=== PATIENT | male | born 2005 | race Caucasian/White ===

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

== ENCOUNTER → 2024-10-28 | Outpatient (CLI) | payer BC, SELFPAY ==
--- NOTE | 2024-10-28 12:39 | RAD_ITS ---
STUDY: X-RAY - RIGHT ANKLE REASON FOR EXAM: Male, 19 years old. ANKLE PAIN TECHNIQUE: 3 view(s) of the ankle. COMPARISON: None. FINDINGS: Normal visualized distal tibia and fibula. Normal medial and lateral malleoli. Normal tibiotalar articulation and ankle mortise. Normal visualized talus and calcaneus. The visualized subtalar, talonavicular, calcaneocuboid and tarsal articulations are normal. The soft tissue structures are unremarkable. RAD/Ankle min 3 Views IMPRESSION: Normal x-ray examination of the ankle. Electronically Signed: Fly Casanova MD at 13:16 EST ,
== END | disposition home or self-care (01) ==
LOC: MTRAD 12:37
PROVIDERS: PCP Internal Medicine; Referring Provider Internal Medicine; Visit Provider Internal Medicine
DX: R10.9 Unspecified abdominal pain (principal); M25.571 Pain in right ankle and joints of right foot
CPT/HCPCS: 73610

== ENCOUNTER → 2025-01-23 | Outpatient (CLI) | payer BC, SELFPAY ==
[2025-01-23 17:48] LABS: Absolute Lymphocyte Count 1.98 X10^3/uL (0.83-4.51); Absolute Neutrophil Count 4.9 X10^3/uL (2.0-7.7); Basophil# 0.04 X10^3/uL; Basophil% 0.5 % (0-1); Eosinophil# 0.08 X10^3/uL; Hematocrit 42.6 % (40-54); Hemoglobin 14.6 g/dL (13.0-16.5); Lymphocyte # 1.98 X10^3/ul (0.83-4.51); Mean Corp Hgb Conc 34.3 g/dL (32-36); Mean Corpuscular Hgb 29.7 pg (27.0-32.0); Mean Corpuscular Volume 86.8 fL (80-94); Mean Platelet Vol. 9.7 fl (6.2-12.0); Monocyte# 0.65 X10^3/uL; Monocyte% 8.5 % (0-10); NRBC Flagged by Analyzer 0 % (0-5); Neutrophil # 4.85 X10^3/uL (2.7-7.7); Neutrophil % 63.7 % (47-70); Platelet Count 305 K/mm3 (150-450); RBC Distribution Width CV 11.4 % (11.6-14.6); RBC Distribution Width SD 36.4 fl (35.1-43.9); Red Blood Count 4.91 M/mm3 (4.6-6.2); White Blood Count 7.6 K/mm3 (4.4-11.0)
[2025-01-23 17:57] LABS: Erythrocyte Sedimentation Rate < 1 mm/hr (0-20)
[2025-01-23 18:39] LABS: ALB/GLOB Ratio 1.3 RATIO (0.9-2.4); AST(SGOT) 17 U/L (15-37); Alanine Aminotransfer ALT/SGPT 21 U/L (16-61); Albumin, Serum 4.2 g/dL (3.2-5.0); Alkaline Phosphatase 55 U/L (45-117); Anion Gap 6 (5-15); BUN 11 mg/dL (7-18); BUN/Creat Ratio 10.4 RATIO (10-20); CRP < 2.90 mg/L (0.0-3.0); Calcium,Total 9.3 mg/dL (8.5-10.1); Chloride 102 mmol/L (98-107); Creatinine, Serum 1.06 mg/dL (0.70-1.30); EST Glomerular Filtration Rate 94 mL/min (>60); Est Glom Filt Rate - Afr Amer 114 mL/min (>60); Ferritin 114 ng/mL (26-388); Globulin 3.3 g/dL (2.2-4.2); Glucose 100 mg/dL (74-106); Potassium 3.8 mmol/L (3.5-5.1); Protein, Total 7.5 g/dL (6.4-8.2); Rheumatoid Factor < 10.0 IU/mL (<15); Sodium Level 137 mmol/L (136-145)
[2025-01-23 18:51] LABS: Vitamin B12 482 pg/mL (211-911); Vitamin D,25 Hydroxy 45.5 ng/mL
[2025-01-25 20:08] LABS: Anti-Nuclear Antibody Test Negative (.)
== END | disposition home or self-care (01) ==
LOC: MTLAB 16:01
PROVIDERS: PCP Internal Medicine; Referring Provider Internal Medicine; Visit Provider Internal Medicine
DX: R53.83 Other fatigue (principal)
CPT/HCPCS: 36415; 80053; 82306; 82607; 82728; 82746; 84443; 85025; 85652; 86038; 86140; 86431

== ENCOUNTER → 2025-08-23 | Outpatient (CLI) | payer BC, SELFPAY ==
[2025-08-23 18:41] LABS: AST(SGOT) 23 U/L (<=37); Alanine Aminotransfer ALT/SGPT 19 U/L (<=46); Albumin, Serum 4.8 g/dL (3.5-5.0); Alkaline Phosphatase 52 U/L (40-129); Anion Gap 13 (5-15); BUN 16 mg/dL (4-19); BUN/Creat Ratio 16.7 RATIO (10-20); Calcium,Total 9.5 mg/dL (7.6-11.0); Carbon Dioxide 24.6 mmol/L (21.0-32.0); Chloride 100 mmol/L (98-108); Ferritin 240 ng/mL (37-417); Globulin 2.5 g/dL (2.2-4.2); Glucose 81 mg/dL (70-99); Potassium 4.2 mmol/L (3.3-5.1)
[2025-08-23 18:49] LABS: Hematocrit 40.3 % (40-54); Hemoglobin 14.3 g/dL (13.0-16.5); Immature Granulocytes Count 0.010 X10^3/uL (0.0-0.0); Mean Corp Hgb Conc 35.5 g/dL (32-36); Mean Corpuscular Volume 84.1 fL (80-94); Mean Platelet Vol. 9.9 fl (6.2-12.0); NRBC Flagged by Analyzer 0 % (0-5); Platelet Count 305 K/mm3 (150-450); RBC Distribution Width CV 11.4 % (11.6-14.6); RBC Distribution Width SD 35.0 fl (35.1-43.9); Red Blood Count 4.79 M/mm3 (4.6-6.2); White Blood Count 6.5 K/mm3 (4.4-11.0)
--- OUTSIDE RECORDS SUMMARY | 2025-08-23 18:49 | XMS RPT_ITS | CCD ---
Author Organization [facility] Care Team Providers Care Independent Sales Representative Name Role Phone Gihslaine Christy Unavailable VANNESA Hess Unavailable Unavailable Ghislaine Christy MD Unavailable [phone] Slarb MEDICAL STAFF SPECIALIST, Swapna Unavailable Unavailable Manchak ELECTRONIC SECURITY TECHNICIAN, Val Unavailable Unavailable Deshawn MEDICAL STAFF SPECIALIST, VANNESA Unavailable Unavailable Unavailable Unavailable Ghislaine Christy MD Unavailable Leonie Presley DO Unavailable [phone] Cowley ELECTRONIC SECURITY TECHNICIAN, Kayela Unavailable Unavailable Kyle MEDICAL STAFF SPECIALIST, Judi Unavailable Unavailable Sridevi GONSALES, Fly Unavailable Ghislaine Christy MD Attending Unavailable Ghislaine Christy MD Consulting Unavailable Madhu Fuentes DO Unavailable Leonie Presley DO Unavailable Ghislaine Christy MD Unavailable Leonie Presley Primary Care Unavailable Ghislaine Christy Referring Unavailable Ghislaine Christy Attending Unavailable SakinaLeonie stallworth Primary Care Unavailable SakinaLeonie Referring Unavailable SakinaLeonie stallworth Attending Unavailable Leonie Presley Primary Care Unavailable Madhu Fuentes Attending Unavailable Madhu Fuentes Attending Unavailable Leonie Presley Primary Care Unavailable Medications Completed/Discontinued Medications Medication Drug Class(es) Dates Sig (Normalized) Sig (Original) amoxicillin 875 mg / clavulanate 125 mg oral tablet (20 sources) Penicillin-class Antibacterial Start: 11-01-2021 End: 10-01-2022 take 1 tablet by mouth twice daily Amoxicillin-Pot Clavulanate 875-125 MG Oral Tablet 1 (one) Tablet bid for 0 days Quantity: 20 {Tablet} Refills: 0 Ordered: 01-Oct-2022 Abdoul Medina CMA Start : 01-Nov-2021 End : 01-Oct-2022 Inactive atomoxetine 18 mg oral capsule (20 sources) Norepinephrine Reuptake Inhibitor Start: 01-31-2022 End: 03-02-2022 take 1 capsule by mouth twice daily Strattera 18 MG Oral Capsule 1 (one) Capsule bid for 30 days Quantity: 60 {Capsule} Refills: 0 Ordered: 31-Jan-2022 Val García CMA Start : 31-Jan-2022 End : 02-Mar-2022 Inactive 12 hr buPROPion hydrochloride 150 mg extended release oral tablet (20 sources) Aminoketone Start: 02-28-2022 End: 10-01-2022 take 1 tablet by mouth every twelve hours buPROPion HCl ER (SR) 150 MG Oral Tablet Extended Release 12 Hour 1 (one) Tablet n a for 0 days Quantity: 30 {Tablet} Refills: 2 Ordered: 01-Oct-2022 Abdoul Medina CMA Start : 28-Feb-2022 End : 01-Oct-2022 Inactive cephalexin 500 mg oral capsule (1 source) Cephalosporin Antibacterial Start: 09-20-2023 take 1 capsule by mouth twice daily cephALEXin 500 mg oral capsule 1 Capsule 2 times per day for 0 days Quantity: 20 {Capsule} Refills: 0 Ordered: 20-Sep-2023 Ghislaine Christy MD Start : 20-Sep-2023 Active doxycycline hyclate 100 mg oral capsule (20 sources) Tetracycline-class Drug Start: 10-13-2022 End: 10-23-2022 take 1 capsule by mouth twice daily Doxycycline Hyclate 100 MG Oral Capsule 1 (one) Capsule two times daily for 10 days Quantity: 20 {Capsule} Refills: 0 Ordered: 13-Oct-2022 Judi Wright LPN Start : 13-Oct-2022 End : 23-Oct-2022 Inactive 24 hr guanFACINE 2 mg extended release oral tablet (20 sources) Central alpha-2 Adrenergic Agonist Start: 06-20-2023 take 1 tablet by mouth once daily, then take 2 tablets by mouth once daily guanFACINE 2 mg oral Tablet, Extended Release 24 hr 1 (one) tablet qd for 30 days Quantity: 30 {Tablet} Refills: 3 Ordered: 20-Jun-2023 Ghislaine Christy MD Start : 20-Jun-2023 Active Comments: take 1mg qd x 1 week then start on the 2mg qd after that. Do not stop abruptly Start: 02-21-2023 take 1 tablet by erika th once daily, then take 2 tablets by mouth once daily guanFACINE 2 mg oral Tablet, Extended Release 24 hr 1 (one) tablet qd for 30 days Quantity: 30 {Tablet} Refills: 3 Ordered: 21-Feb-2023 Ghislaine Christy MD, MD, Dana M Start : 21-Feb-2023 Active Comments: take 1mg qd x 1 week then start on the 2mg qd after that. Do not stop abruptly Start: 12-26-2022 take 1 tablet by erika th once daily, then take 2 tablets by mouth once daily guanFACINE 2 mg oral Tablet, Extended Release 24 hr 1 (one) tablet qd for 30 days Quantity: 30 {Tablet} Refills: 3 Ordered: 26-Dec-2022 Ghislaine Christy MD, MD, Dana M Start : 26-Dec-2022 Active Comments: take 1mg qd x 1 week then start on the 2mg qd after that. Do not stop abruptly Start: 12-25-2022 End: 01-01-2023 take 1 tablet by mouth once daily guanFACINE 1 mg oral Tablet, Extended Release 24 hr 1 Tablet 1 tab qd x 1 wk, then take the 2mg script for 7 days Quantity: 7 {Tablet} Refills: 0 Ordered: 25-Dec-2022 Leonie Presley DO, DO, Kathleen Start : 25-Dec-2022 End : 01-Jan-2023 Inactive Comments: do not abruptly stop Start: 12-25-2022 take 1 mg by mouth o nce daily, then take 1 tablet by mouth once daily guanFACINE 2 mg oral tablet 1 (one) tablet qd for 30 days Quantity: 30 {Tablet} Refills: 3 Ordered: 25-Dec-2022 Leonie Preslye DO Start : 25-Dec-2022 Active Comments: take 1mg qd x 1 week then start on the 2mg qd after that. Do not stop abruptly Start: 12-22-2022 take 1 mg by mouth o nce daily, then take 1 tablet by mouth once daily guanFACINE 2 mg oral tablet 1 (one) tablet qd for 30 days Quantity: 30 {Tablet} Refills: 3 Ordered: 22-Dec-2022 Val García CMA Start : 22-Dec-2022 Active Comments: take 1mg qd x 1 week then start on the 2mg qd after that. Do not stop abruptly Start: 12-20-2022 take 1 tablet by erika th once daily guanFACINE 1 mg oral Tablet, Extended Release 24 hr 1 Tablet daily for 1 week then increase to 2 mg a day for 0 days Quantity: 30 {Tablet} Refills: 2 Ordered: 22-Dec-2022 Leonie Presley DO Start : 22-Dec-2022 Active Comments: do not abruptly stop Start: 02-04-2022 End: 10-01-2022 take 1 tablet by mouth every twenty-four hours guanFACINE HCl ER 3 MG Oral Tablet Extended Release 24 Hour 1 (one) Tablet at night for 0 days Quantity: 30 {Tablet} Refills: 3 Ordered: 01-Oct-2022 Abdoul Medina CMA Start : 04-Feb-2022 End : 01-Oct-2022 Inactive Comment on above: do not abruptly stop take 1mg qd x 1 week then start on the 2mg qd after that. Do not stop abruptly oseltamivir 75 mg oral capsule (19 sources) Neuraminidase Inhibitor Start: 11-20-20 End: 01-21-20 take 1 capsule by mouth once daily Tamiflu 75 mg oral capsule 1 Capsule daily for 0 days Quantity: 10 {Capsule} Refills: 0 Ordered: 21-Jan-2023 Abdoul Medina CMA Start : 20-Nov-2022 End : 21-Jan-2023 Inactive Qelbree 100 mg oral Capsule, ER 24 hr (2 sources) take 1 capsule by mouth every twenty-four hours in the morning Qelbree 100 mg oral Capsule, ER 24 hr in am (100 mg) Active QUEtiapine 25 mg oral tablet (20 sources) Atypical Antipsychotic Start: 05-01-20 End: 06-21-20 23 take 1 tablet by mouth once daily QUEtiapine 25 mg oral tablet 1 (one) Tablet qd for 0 days Quantity: 30 {Tablet} Refills: 2 Ordered: 01-May-2023 Leonardo Deisi Start : 01-May-2023 End : 21-Jun-2023 Discontinued Start: 01-21-2023 take 1 tablet by erika th once daily QUEtiapine 25 mg oral tablet 1 (one) Tablet qd for 0 days Quantity: 30 {Tablet} Refills: 2 Ordered: 21-Jan-2023 Leonie Presley DO Start : 21-Jan-2023 Active Start: 01-17-2023 take 1 tablet by erika th once daily QUEtiapine 25 mg oral tablet 1 (one) Tablet qd for 0 days Quantity: 30 {Tablet} Refills: 2 Ordered: 17-Jan-2023 Mando GONSALES, Ghislaine Christy MD, Ghislaine Martinez Start : 17-Jan-2023 Active Start: 10-01-2022 take 1 tablet by erika th once daily QUEtiapine Fumarate 25 MG Oral Tablet 1 (one) Tablet qd for 0 days Quantity: 30 {Tablet} Refills: 2 Ordered: 01-Oct-2022 Leonie Presley DO Start : 01-Oct-2022 Active Problems Active Problems Problem Classification Problem Date Documented Date Episodic/Chronic Abdominal pain (1 source) Unspecified abdominal pain; Translations: [Unspecified abdominal pain] Onset: 11-28-2024 Episodic Acute bronchitis (20 sources) Acute bronchitis; Translations: [Acute bronchitis] 11-01-2021 Episodic Attention-deficit, conduct, and disruptive behavior disorders (1 source) Attention-deficit hyperactivity disorder, unspecified type; Translations: [Attention-deficit hyperactivity disorder, unspecified type] Onset: 11-02-2024 Chronic Fever of unknown origin (2 sources) Fever; Translations: [Fever] 09-20-2023 Episodic Immunizations and screening for infectious disease (20 sources) Contact with and (suspected) exposure to other viral communicable diseases; Translations: [Contact with and (suspected) exposure to other viral communicable diseases (Renamed from Contact with or suspected exposure to other viral communicable disease)] Resolved: 10-01-2022 10-09-2021 Episodic Malaise and fatigue (20 sources) Fatigue; Translations: [Fatigue] Onset: 02-02-2025 Resolved: 10-01-2022 10-22-2020 Episodic Mood disorders (20 sources) Severe recurrent major depression; Translations: [Major depressive disorder, recurrent episode, severe] 01-21-2019 Chronic Mood disorders (20 sources) Mood swings; Translations: [Mood swings] 10-01-2022 Episodic Other connective tissue disease (20 sources) Pain in hallux; Translations: [Great toe pain, right] Resolved: 10-01-2022 02-03-2022 Episodic Other lower respiratory disease (20 sources) Cough; Translations: [Cough] Resolved: 10-01-2022 01-02-2021 Episodic Other lower respiratory disease (18 sources) Dyspnea; Translations: [Shortness of breath] 01-28-2023 Episodic Other nervous system disorders (20 sources) Attention and concentration deficit; Translations: [Disturbance of attention] 01-21-2019 Chronic Other non-traumatic joint disorders (20 sources) Pain of right wrist; Translations: [Wrist pain, right] Resolved: 10-01-2022 10-22-2020 Episodic Other screening for suspected conditions (not mental disorders or infectious disease) (20 sources) Patient encounter status; Translations: [Encounter for screening for lipid disorder (Renamed from Screening for lipid disorders)] 10-22-2020 Episodic Other upper respiratory disease (11 sources) Pain in throat Episodic Other upper respiratory disease (20 sources) Lesion of nose; Translations: [Nasal lesion] 10-17-2022 Episodic Other upper respiratory infections (20 sources) Sore throat symptom; Translations: [Sore throat] 05-28-2018 Episodic Residual codes; unclassified (20 sources) Nicotine-filled electronic cigarette user; Translations: [Vapes nicotine containing substance] 10-01-2022 Episodic Residual codes; unclassified (20 sources) Body mass index 20-24 - normal; Translations: [BMI 24.0-24.9, adult] 01-21-2023 Episodic Sprains and strains (20 sources) Sprain of distal tibiofibular ligament; Translations: [High ankle sprain, initial encounter] Resolved: 10-01-2022 11-15-2019 Episodic Substance-related disorders (20 sources) Addiction; Translations: [Addiction] 02-06-2023 Chronic Past or Other Problems Problem Classification Problem Date Documented Da te Episodic/Chronic Mood disorders (6 sources) Mood disorders Other non-traumatic joint disorders (2 sources) Pain of right wrist; Translations: [Wrist pain, right] 10-22-2020 Unclassified (10 sources) High ankle sprain, initial encounter Unclassified (20 sources) Attention deficit Unclassified (12 sources) Encounter for screening for lipid disorder (Renamed from Screening for lipid disorders); Translations: [Patient encounter status] 10-22-2020 Unclassified (10 sources) Wrist pain, right Unclassified (15 sources) Encounter for screening for COVID-19 Unclassified (8 sources) Contact with and (suspected) exposure to other viral communicable diseases (Renamed from Contact with or suspected exposure to other viral communicable disease) Unclassified (8 sources) Exposure to COVID-19 virus Unclassified (11 sources) Major depressive disorder, recurrent episode, severe Unclassified (6 sources) Great toe pain, right Unclassified (7 sources) Encounter for drug screening Unclassified (20 sources) Unclassified (20 sources) Unspecified Diagnosis 10-13-2022 Results Test Name Value Interpretation Reference Range Facility Antinuclear Antibody, IFAon 01-25-2025 JULIAN, IFA Negative Normal . [facility] Comment on above: Result Comment: Nega tive <1:80 Borderline 1:80 Positive >1:80 ICAP nomenclature: AC-0 For more information about Hep-2 cell patterns use ANApatterns.org, the official website for the International Consensus on Antinuclear Antibody (JULIAN) Patterns (ICAP). Performed at: [facility] [address] [id number] Accounts Receivable Processor: Antonio Holm PhD, Phone: [phone] Performed By: #### L 500.4050, L3100.7950, L506.1000, L506.0250, L501.6710, L503.0105, L503.6550, L100.0100, L501.9520, L101.9900, L505.7010 #### [facility] [address] [place], [address] CBC W/Diff, Automatedon 01-01 Absolute Lymph 1.98 X10 3/uL Normal 0.83-4.51 [facility] Comment on above: Performed By: #### L 500.4050, L3100.7950, L506.1000, L506.0250, L501.6710, L503.0105, L503.6550, L100.0100, L501.9520, L101.9900, L505.7010 #### [facility] [address] [place], [address] Absolute Neut 4.9 X10 3/uL Normal 2.0-7.7 [facility] Comment on above: Performed By: #### L 500.4050, L3100.7950, L506.1000, L506.0250, L501.6710, L503.0105, L503.6550, L100.0100, L501.9520, L101.9900, L505.7010 #### [facility] [address] [place], [address] Basophils/100 WBC (Bld) 0.5 % Normal 0-1 [facility] Comment on above: Performed By: #### L 500.4050, L3100.7950, L506.1000, L506.0250, L501.6710, L503.0105, L503.6550, L100.0100, L501.9520, L101.9900, L505.7010 #### [facility] [address] [place], [address] Eosinophils/100 WBC (Bld) 1.0 % Normal 0-5 [facility] Comment on above: Performed By: #### L 500.4050, L3100.7950, L506.1000, L506.0250, L501.6710, L503.0105, L503.6550, L100.0100, L501.9520, L101.9900, L505.7010 #### [facility] [address] [place], [address] Erythrocyte distribution width (RBC) [Ratio] 11.4 % Low 11.6-14.6 [facility] Comment on above: Performed By: #### L 500.4050, L3100.7950, L506.1000, L506.0250, L501.6710, L503.0105, L503.6550, L100.0100, L501.9520, L101.9900, L505.7010 #### [facility] [address] [place], [place], [id number] (512) Hematocrit (Bld) [Volume fraction] 42.6 % Normal 40-54 [facility] Comment on above: Performed By: #### L 500.4050, L3100.7950, L506.1000, L506.0250, L501.6710, L503.0105, L503.6550, L100.0100, L501.9520, L101.9900, L505.7010 #### [facility] [address] [place], [place], [id number] (156) Hemoglobin (Bld) [Mass/Vol] 14.6 g/dL Normal 13.0-16.5 [facility] Comment on above: Performed By: #### L 500.4050, L3100.7950, L506.1000, L506.0250, L501.6710, L503.0105, L503.6550, L100.0100, L501.9520, L101.9900, L505.7010 #### [facility] [address] [place], [place], [id number] (647) IG% 0.300 Normal 0.0-0.9 [facility] Comment on above: Result Comment: IG% - Immature Granulocytes (promyelocytes, myelocytes and metamyelocytes) > 1% indicates that a LEFT SHIFT is Present. Performed By: #### L 500.4050, L3100.7950, L506.1000, L506.0250, L501.6710, L503.0105, L503.6550, L100.0100, L501.9520, L101.9900, L505.7010 #### [facility] [address] [place], [address] Lymphocytes/100 WBC (Bld) 26.0 % Normal 19-41 [facility] Comment on above: Performed By: #### L 500.4050, L3100.7950, L506.1000, L506.0250, L501.6710, L503.0105, L503.6550, L100.0100, L501.9520, L101.9900, L505.7010 #### [facility] [address] [place], [address] MCH (RBC) [Entitic mass] 29.7 pg Normal 27.0-32.0 [facility] Comment on above: Performed By: #### L 500.4050, L3100.7950, L506.1000, L506.0250, L501.6710, L503.0105, L503.6550, L100.0100, L501.9520, L101.9900, L505.7010 #### [facility] [address] [place], [address] MCHC (RBC) [Mass/Vol] 34.3 g/dL Normal 32-36 [facility] Comment on above: Performed By: #### L 500.4050, L3100.7950, L506.1000, L506.0250, L501.6710, L503.0105, L503.6550, L100.0100, L501.9520, L101.9900, L505.7010 #### [facility] [address] [place], [address] MCV (RBC) [Entitic vol] 86.8 fL Normal 80-94 [facility] Comment on above: Performed By: #### L 500.4050, L3100.7950, L506.1000, L506.0250, L501.6710, L503.0105, L503.6550, L100.0100, L501.9520, L101.9900, L505.7010 #### [facility] [address] [place], [address] Monocytes/100 WBC (Bld) 8.5 % Normal 0-10 [facility] Comment on above: Performed By: #### L 500.4050, L3100.7950, L506.1000, L506.0250, L501.6710, L503.0105, L503.6550, L100.0100, L501.9520, L101.9900, L505.7010 #### [facility] [address] [place], [address] Neutrophils/100 WBC (Bld) 63.7 % Normal 47-70 [facility] Comment on above: Performed By: #### L 500.4050, L3100.7950, L506.1000, L506.0250, L501.6710, L503.0105, L503.6550, L100.0100, L501.9520, L101.9900, L505.7010 #### [facility] [address] [place], [address] Nucleated RBC (Bld) [#/Vol] 0 10*3/uL Normal 0-5 [facility] Comment on above: Performed By: #### L 500.4050, L3100.7950, L506.1000, L506.0250, L501.6710, L503.0105, L503.6550, L100.0100, L501.9520, L101.9900, L505.7010 #### [facility] [address] [place], [address] Platelet mean volume (Bld) [Entitic vol] 9.7 fL Normal 6.2-12.0 [facility] Comment on above: Performed By: #### L 500.4050, L3100.7950, L506.1000, L506.0250, L501.6710, L503.0105, L503.6550, L100.0100, L501.9520, L101.9900, L505.7010 #### [facility] [address] [place], [address] Platelets (Bld) [#/Vol] 305 10*3/uL Normal 150-450 [facility] Comment on above: Performed By: #### L 500.4050, L3100.7950, L506.1000, L506.0250, L501.6710, L503.0105, L503.6550, L100.0100, L501.9520, L101.9900, L505.7010 #### [facility] [address] [place], [address] RBC (Bld) [#/Vol] 4.91 10*6/uL Normal 4.6-6.2 [facility] Comment on above: Performed By: #### L 500.4050, L3100.7950, L506.1000, L506.0250, L501.6710, L503.0105, L503.6550, L100.0100, L501.9520, L101.9900, L505.7010 #### [facility] [address] [place], [address] RDW SD 36.4 fl Normal 35.1-43.9 [facility] Comment on above: Performed By: #### L 500.4050, L3100.7950, L506.1000, L506.0250, L501.6710, L503.0105, L503.6550, L100.0100, L501.9520, L101.9900, L505.7010 #### [facility] [address] [place], [address] WBC (Bld) [#/Vol] 7.6 10*3/uL Normal 4.4-11.0 [facility] Comment on above: Performed By: #### L 500.4050, L3100.7950, L506.1000, L506.0250, L501.6710, L503.0105, L503.6550, L100.0100, L501.9520, L101.9900, L505.7010 #### [facility] [address] [place], [place], [id number] CRPon 01-23-2025 C-REACTIVE PROT < 2.90 Normal 0.0-3.0 [facility] Comment on above: Result Comment: C-Re active Protein (CRP) provides useful information for the diagnosis, therapy and monitoring of inflammatory processes and associated diseases. For the evaluation of Relative Risk for Cardiovascular Disease, a High Sensitivity CRP (HSCRP) should be ordered. Performed By: #### L 500.4050, L3100.7950, L506.1000, L506.0250, L501.6710, L503.0105, L503.6550, L100.0100, L501.9520, L101.9900, L505.7010 #### [facility] [address] [place], [place], [id number] Comprehensive Metabolic Prof ilon 01-23-2025 Albumin [Mass/Vol] 4.2 g/dL Normal 3.2-5.0 [facility] Comment on above: Performed By: #### L 500.4050, L3100.7950, L506.1000, L506.0250, L501.6710, L503.0105, L503.6550, L100.0100, L501.9520, L101.9900, L505.7010 #### [facility] [address] [place], [place], [id number] Albumin/Globulin [Mass ratio] 1.3 {ratio} Normal 0.9-2.4 [facility] Comment on above: Performed By: #### L 500.4050, L3100.7950, L506.1000, L506.0250, L501.6710, L503.0105, L503.6550, L100.0100, L501.9520, L101.9900, L505.7010 #### [facility] [address] [place], [address] ALK P 55 U/L Normal 45-117 [facility] Comment on above: Performed By: #### L 500.4050, L3100.7950, L506.1000, L506.0250, L501.6710, L503.0105, L503.6550, L100.0100, L501.9520, L101.9900, L505.7010 #### [facility] [address] [place], [address] ALT [Catalytic activity/Vol] 21 U/L Normal 16-61 [facility] Comment on above: Performed By: #### L 500.4050, L3100.7950, L506.1000, L506.0250, L501.6710, L503.0105, L503.6550, L100.0100, L501.9520, L101.9900, L505.7010 #### [facility] [address] [place], [place], [id number] AST [Catalytic activity/Vol] 17 U/L Normal 15-37 [facility] Comment on above: Performed By: #### L 500.4050, L3100.7950, L506.1000, L506.0250, L501.6710, L503.0105, L503.6550, L100.0100, L501.9520, L101.9900, L505.7010 #### [facility] [address] [place], [address] Bilirubin [Mass/Vol] 0.20 mg/dL Normal 0.20-1.00 [facility] Comment on above: Result Comment: For patients on eltrombopag therapy, use of Dimension Mineral TBIL is not recommended. Performed By: #### L 500.4050, L3100.7950, L506.1000, L506.0250, L501.6710, L503.0105, L503.6550, L100.0100, L501.9520, L101.9900, L505.7010 #### [facility] [address] [place], [address] BUN/CRE 10.4 RATIO Normal 10-20 [facility] Comment on above: Performed By: #### L 500.4050, L3100.7950, L506.1000, L506.0250, L501.6710, L503.0105, L503.6550, L100.0100, L501.9520, L101.9900, L505.7010 #### [facility] [address] [place], [place], [id number] (906) CA,Total 9.3 mg/dL Normal 8.5-10.1 [facility] Comment on above: Performed By: #### L 500.4050, L3100.7950, L506.1000, L506.0250, L501.6710, L503.0105, L503.6550, L100.0100, L501.9520, L101.9900, L505.7010 #### [facility] [address] [place], [place], [id number] (700) Chloride [Moles/Vol] 102 mmol/L Normal 98-107 [facility] Comment on above: Performed By: #### L 500.4050, L3100.7950, L506.1000, L506.0250, L501.6710, L503.0105, L503.6550, L100.0100, L501.9520, L101.9900, L505.7010 #### [facility] [address] [place], [address] CO2 [Moles/Vol] 29.0 mmol/L Normal 21.0-32.0 [facility] Comment on above: Performed By: #### L 500.4050, L3100.7950, L506.1000, L506.0250, L501.6710, L503.0105, L503.6550, L100.0100, L501.9520, L101.9900, L505.7010 #### [facility] [address] [place], [place], [id number] (648) Creatinine [Mass/Vol] 1.06 mg/dL Normal 0.70-1.30 [facility] Comment on above: Result Comment: The validity of the calculated GFR GFRAA in patients over 70 years has not been determined. Clinical correlation is essential. Performed By: #### L 500.4050, L3100.7950, L506.1000, L506.0250, L501.6710, L503.0105, L503.6550, L100.0100, L501.9520, L101.9900, L505.7010 #### [facility] [address] [place], [place], [id number] (236) EST GFR - AA 114 mL/min Normal >60 [facility] Comment on above: Result Comment: Afri can Belarusian GFR Calc Performed By: #### L 500.4050, L3100.7950, L506.1000, L506.0250, L501.6710, L503.0105, L503.6550, L100.0100, L501.9520, L101.9900, L505.7010 #### [facility] [address] [place], [place], [id number] (990) GAP 6 Normal 5-15 [facility] Comment on above: Performed By: #### L 500.4050, L3100.7950, L506.1000, L506.0250, L501.6710, L503.0105, L503.6550, L100.0100, L501.9520, L101.9900, L505.7010 #### [facility] [address] [place], [address] GFR/1.73 sq M.predicted among non-blacks MDRD (S/P/Bld) [Vol rate/Area] 94 mL/min/{1.73_m2} Normal >60 [facility] Comment on above: Result Comment: Non- GFR Calc Performed By: #### L 500.4050, L3100.7950, L506.1000, L506.0250, L501.6710, L503.0105, L503.6550, L100.0100, L501.9520, L101.9900, L505.7010 #### [facility] [address] [place], [address] Globulin (S) [Mass/Vol] 3.3 g/dL Normal 2.2-4.2 [facility] Comment on above: Performed By: #### L 500.4050, L3100.7950, L506.1000, L506.0250, L501.6710, L503.0105, L503.6550, L100.0100, L501.9520, L101.9900, L505.7010 #### [facility] [address] [place], [address] Glucose [Mass/Vol] 100 mg/dL Normal 74-106 [facility] Comment on above: Result Comment: Fast ing Glucose result from 100 to 125 mg/dL suggests IMPAIRED HOMEOSTASIS per A.D.A. criteria. Performed By: #### L 500.4050, L3100.7950, L506.1000, L506.0250, L501.6710, L503.0105, L503.6550, L100.0100, L501.9520, L101.9900, L505.7010 #### [facility] [address] [place], [address] Potassium [Moles/Vol] 3.8 mmol/L Normal 3.5-5.1 [facility] Comment on above: Performed By: #### L 500.4050, L3100.7950, L506.1000, L506.0250, L501.6710, L503.0105, L503.6550, L100.0100, L501.9520, L101.9900, L505.7010 #### [facility] [address] [place], [address] Sodium [Moles/Vol] 137 mmol/L Normal 136-145 [facility] Comment on above: Performed By: #### L 500.4050, L3100.7950, L506.1000, L506.0250, L501.6710, L503.0105, L503.6550, L100.0100, L501.9520, L101.9900, L505.7010 #### [facility] [address] [place], [address] T PROT 7.5 g/dL Normal 6.4-8.2 [facility] Comment on above: Performed By: #### L 500.4050, L3100.7950, L506.1000, L506.0250, L501.6710, L503.0105, L503.6550, L100.0100, L501.9520, L101.9900, L505.7010 #### [facility] [address] [place], [address] Urea nitrogen [Mass/Vol] 11 mg/dL Normal 7-18 [facility] Comment on above: Performed By: #### L 500.4050, L3100.7950, L506.1000, L506.0250, L501.6710, L503.0105, L503.6550, L100.0100, L501.9520, L101.9900, L505.7010 #### [facility] [address] [place], [address] Erythrocyte Sed Rateon 01-23 SED RATE < 1 Normal 0-20 [facility] Comment on above: Performed By: #### L 500.4050, L3100.7950, L506.1000, L506.0250, L501.6710, L503.0105, L503.6550, L100.0100, L501.9520, L101.9900, L505.7010 #### [facility] [address] [place], [address] Ferritinon 01-23-2025 Ferritin [Mass/Vol] 114 ng/mL Normal 26-388 [facility] Comment on above: Performed By: #### L 500.4050, L3100.7950, L506.1000, L506.0250, L501.6710, L503.0105, L503.6550, L100.0100, L501.9520, L101.9900, L505.7010 #### [facility] [address] [place], [address] Folates, (Folic Acid)on 01-01 FOLATES 18.40 ng/mL Normal 3.1-55.4 [facility] Comment on above: Order Comment: N Performed By: #### L 500.4050, L3100.7950, L506.1000, L506.0250, L501.6710, L503.0105, L503.6550, L100.0100, L501.9520, L101.9900, L505.7010 #### [facility] [address] [place], [address] Rheumatoid Factoron 01-23-20 25 RHEUMATOID FAC < 10.0 Normal <15 [facility] Comment on above: Performed By: #### L 500.4050, L3100.7950, L506.1000, L506.0250, L501.6710, L503.0105, L503.6550, L100.0100, L501.9520, L101.9900, L505.7010 #### [facility] [address] [place], [address] Thyroid Stim Hormone (TSH)on 01-23-2025 TSH 1.060 uIU/mL Normal 0.358-3.740 [facility] Comment on above: Performed By: #### L 500.4050, L3100.7950, L506.1000, L506.0250, L501.6710, L503.0105, L503.6550, L100.0100, L501.9520, L101.9900, L505.7010 #### [facility] [address] [place], [id number] Vitamin B12on 01-23-2025 Cobalamin (Vitamin B12) [Mass/Vol] 482 pg/mL Normal 211-911 [facility] Comment on above: Performed By: #### L 500.4050, L3100.7950, L506.1000, L506.0250, L501.6710, L503.0105, L503.6550, L100.0100, L501.9520, L101.9900, L505.7010 #### [facility] [address] [place], [id number] Vitamin D,25 Hydroxyon 01-23 Vitamin D 25-OH 45.5 ng/mL Normal [facility] Comment on above: Result Comment: Ania min D 25(OH) Status Range Deficiency <20 ng/mL (50nmol/L) Insufficiency 20 - 30 ng/mL (50 - 75 nmol/L) Sufficiency 30 - 100 ng/mL (75 - 250 nmol/L) Toxicity >100 ng/mL (>250 nmol/L) Performed By: #### L 500.4050, L3100.7950, L506.1000, L506.0250, L501.6710, L503.0105, L503.6550, L100.0100, L501.9520, L101.9900, L505.7010 #### [facility] [address] [place], [id number] MR/JOAN.BPon 11-02-2024 MR/BMS. [address], [address] [place], [place] [address] OFFICE VISIT Date of Service: 11/02/24 MR#: [id number] Acct: [id number] Name: ISIDORO CHRISTY Rep #: [id number] : 2005 Provider: Dr. Madhu Santacruz se, DO Age/Sex: 19/M Location[place] [facility] [place] Status: Signed Intake Vital Signs 06/29/24 15:56 11/02/24 16:01 Height 6 ft 1 in 6 ft 1 in BP 129/84 H Blood Pressure Location Rt brachial Position Sitting Respiration 16 Pulse 87 Pulse Source Monitor BP Intake Visit Reasons: 3 M FU Accompanied by: Self Is patient in pain?: No Allergies No Known Allergies Allergy (Verified 11/02/24 16:00) Medications ???Medication ???Instructions ???Recorded ???Confirmed ???Type guanfacine 2 mg tablet,extended 2 mg PO QPM #90 tabs 11/02/24 11/02/24 Rx release 24 hr viloxazine 200 mg capsule,extended 400 mg (2 x 200 mg) PO DAILY 90 11/02/24 11/02/24 Rx release 24 hr days #180 caps PFSH Medical History Polysubstance (including opioids) dependence without physiological dependence Anxiety disorder, unspecified Depression, unspecified Psychiatric hospitalisation Drug abuse Bone fracture Alcohol abuse Anxiety ADHD Family History Other Alcoholism Anxiety Depression Diabetes Hypertension Mental disorder Psychiatric care Suicide attempt Social History Smoking Status: Current every day smoker tobacco type: e-cigarettes alcohol intake: current substance use type: other details: marked as yes, does not give specific choice of drug what type of physical activity do you participate in: walking HPI History of Present Illness History provided by: patient HPI: Isidoro Christy is a 19 year old male who presents today for follow up evaluation. Patient admits to having been doing good, and had some positive changes. Was pulled over for having underage possession of marijuana, and has now been clean of all THC for 8 weeks. Has been feeling much more clear since stopping. Feels like Cleverbug is working much better. 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 Sleep has been doing largely well. Stopped following with Anat at [facility]. Patient reports that he broke up with his girlfriend in recent past. Has been trying to cut out fast food as best as he can. Denies SI/HI or AVH/ Review of Systems Constitutional Denies: fever(s), chills, change in weight or fatigue Eyes Denies: change in vision or blurry vision Ears, Nose, Mouth, Throat Denies: throat pain, neck pain or change in hearing Cardiovascular Denies: chest pain or dyspnea Respiratory Denies: dyspnea or wheezing Gastrointestinal Denies: abdominal pain, nausea, vomiting, diarrhea or constipation Genitourinary Denies: dysuria or urinary frequency Musculoskeletal Denies: neck pain Integumentary/Breast Denies: rash or new lesions Neurological Denies: headache(s), dizziness or confusion Endocrine Denies: fatigue or excessive sweating Hematologic/Lymphatic Denies: easy bruising or easy bleeding Allergic/Immunologic Denies: wheezing Exam Mental Status Exam - Psych Appearance casually dressed and no apparent distress Attitude cooperative Activity/Motor Behavior MSE activity/motor behavior finding no adventitious movements Speech regular rate, regular volume and regular prosody Mood other ("pretty good") Affect restricted Thought Process coherent and tangential Thought Content no delusions and no hallucinations Suicidal Ideation none Homicidal Ideation none Attention intact Concentration intact Sensorium/Orientation awake, alert and oriented x3 Memory/Cognition other (appropriate for stated age) Insight fair Judgement fair Assessment Plan Assessment Plan (1) ADHD: Qualifiers: Attention deficit-hyperactivity disorder type: combined inattentive-hyperactive Qualified Code(s): F90.2 - Attention-deficit hyperactivity disorder, combined type Plan: - doing much better with Qelbree since discontinuing THC products (2) Depression, unspecified: Plan: - stable (3) Anxiety disorder, unspecified: Plan: - See above (4) Polysubstance (including opioids) dependence without physiological dependence: Plan: - Complete abstinence from cannabis at this time Medications: Refilled guanfacine ER 2 mg PO QPM 90 tabs 1RF F90.9 - Attention-deficit hyperactivity disorder, unspecified type Coding Level of Care Code Off vis,est,level 4 Diagnoses Attention deficit hyperactivity disorder (ADHD), combined type F90.2 Attention deficit-hyperactivity disorder type: combined inattentive-hyperact (more content not included)... Normal [facility] Ankle min 3 Viewson 11-29-20 24 Ankle min 3 Views [facility] [address] [place], [place] [address] Ankle min 3 Views MR#: [id number] Acct: [id number] Name: ISIDORO CHRISTY Rep #: [id number] : 2005 M 19 From: Fly Schaeffer PCP: Dr. Leonie Presley DO Status: REG CLI Study: Ankle min 3 Views Date of Exam: 10/28/24 Exam# [id number] Ordering Dr: Ghislaine Christy MD :[id number] STUDY: X-RAY - RIGHT ANKLE REASON FOR EXAM: Male, 19 years old. ANKLE PAIN TECHNIQUE: 3 view(s) of the ankle. COMPARISON: None. FINDINGS: Normal visualized distal tibia and fibula. Normal medial and lateral malleoli. Normal tibiotalar articulation and ankle mortise. Normal visualized talus and calcaneus. The visualized subtalar, talonavicular, calcaneocuboid and tarsal articulations are normal. The soft tissue structures are unremarkable. RAD/Ankle min 3 Views IMPRESSION: Normal x-ray examination of the ankle. Electronically Signed: Fly Casanova MD at 13:16 EST , CC: Dr. Ghislaine Christy MD; Dr. Leonie Presley DO Telecommunications Engineer: Signed Normal [facility] MR/BMS.BPon 06-29-2024 MR/BMS.[address], [address] [place] [address] OFFICE VISIT Date of Service: 06/29/24 MR#: [id number] Acct: [id number] Name: ISIDORO CHRISTY Rep #: [id number] : 2005 Provider: Dr. Madhu Santacruz se, DO Age/Sex: 19/M Location: [facility] [place] Status: Signed Intake Vital Signs 02/04/24 16:33 06/29/24 15:56 Height 6 ft 1 in 6 ft 1 in BP Intake Visit Reasons: follow up Allergies No Known Allergies Allergy (Verified 02/04/24 16:33) PFSH Medical History ADHD Alcohol abuse Anxiety Anxiety disorder, unspecified Bone fracture Depression, unspecified Drug abuse Polysubstance (including opioids) dependence without physiological dependence Psychiatric hospitalisation Family History Other Alcoholism Anxiety Depression Diabetes Hypertension Mental disorder Psychiatric care Suicide attempt Social History Smoking Status: Current every day smoker tobacco type: e-cigarettes alcohol intake: current substance use type: other details: marked as yes, does not give specific choice of drug what type of physical activity do you participate in: walking HPI History of Present Illness History provided by: patient HPI: Isidoro Christy is a 19 year old male who presents today for follow up evaluation. Patient reports that he has been "alright." Patient reports that medication has been going "pretty good." Has been taking viloxazine as prescribed, and does feel like focus has been decent. Had accidentally took guanfacine in the morning and felt like he felt more calm in the morning. Feels like he still has some "cognitive distortions." Follows with Anat at [facility]. Denies any SI/HI or AVH. Does feel like he is less impulsive than he had been in the past. Review of Systems Constitutional Denies: fever(s), chills, change in weight or fatigue Eyes Denies: change in vision or blurry vision Ears, Nose, Mouth, Throat Denies: throat pain, neck pain or change in hearing Cardiovascular Denies: chest pain or dyspnea Respiratory Denies: dyspnea or wheezing Gastrointestinal Denies: abdominal pain, nausea, vomiting, diarrhea or constipation Genitourinary Denies: dysuria or urinary frequency Musculoskeletal Denies: neck pain Integumentary/Breast Denies: rash or new lesions Neurological Denies: headache(s), dizziness or confusion Endocrine Denies: fatigue or excessive sweating Hematologic/Lymphatic Denies: easy bruising or easy bleeding Allergic/Immunologic Denies: wheezing Exam Mental Status Exam - Psych Appearance casually dressed and no apparent distress Attitude guarded Activity/Motor Behavior MSE activity/motor behavior finding no adventitious movements Speech regular rate, regular volume and regular prosody Mood other ("All right") Affect restricted Thought Process coherent and tangential Thought Content no delusions and no hallucinations Suicidal Ideation none Homicidal Ideation none Attention intact Concentration intact Sensorium/Orientation awake, alert and oriented x3 Memory/Cognition other (appropriate for stated age) Insight fair Judgement fair Assessment Plan Assessment Plan (1) ADHD: Qualifiers: Attention deficit-hyperactivity disorder type: combined inattentive-hyperactive Qualified Code(s): F90.2 - Attention-deficit hyperactivity disorder, combined type Plan: - Tolerating Qelbree at 400 mg a day -Patient okay to move guanfacine to morning as he felt that it helped him feel more calm during the day (2) Depression, unspecified: Plan: - stable -Additional psychotherapy as below (3) Anxiety disorder, unspecified: Plan: - See above (4) Polysubstance (including opioids) dependence without physiological dependence: Plan: - Longstanding history of polysubstance abuse including opioids, stimulants, hallucinogens, alcohol, nicotine, does admit to recently smoking some marijuana Visit Details Comments: Spent 20 minutes outside of [facility] providing additional psychotherapy. Largely provided cognitive/behavioral psychotherapy. Discussed patient's recurrent sense of not being able to live up to his siblings and negative distortions. Patient describes feeling like he cannot outlive his previous decisions and has to act a certain way in front of other people so that they can think a certain thing about him. He has good insight into recognizing these distortions however does seem to have some difficulty implementing behavioral changes. 07/04/24 0626 Date Madhu Zacarias Signature: Date (more content not included)... Normal [facility] COVID 19 RAPID ([id number])Ordere d By: Ghislaine Christy on 09-20-2023 SARS-CoV-2 (COVID-19) RNA MITCH+probe Ql (Unsp spec) Negative [facility] Work Phone: Inhouse FLU A+B DIRECT AG, ( RAPID) ([id number])Ordered By: Ghislaine Christy on 09-20-2023 FLUAV+FLUBV Ag Ql (Unsp spec) Negative Normal [facility]; [facility] Work Phone: Rapid Strep Test, Office ([phone])Ordered By: Ghislaine Christy on 09-20-2023 S. pyogenes Ag EIA Ql (Throat) Positive Normal [facility]; [facility] Work Phone: Urine Drug Screen -Medicare (Office - Urine Drug Screen 9 Panel) ([id number])Ordered By: Val García on 02-11-2023 Barbiturates Ql (S/P/Bld) n Normal [facility]; [facility] Work Phone: Benzodiazepines Ql (U) n Normal [facility]; [facility] Work Phone: Benzoylecgonine Confirm Ql n Normal [facility]; [facility] Work Phone: Cannabinoids Confirm Ql (U) n Normal [facility]; [facility] Work Phone: Methadone [Mass/Vol] n Normal [facility]; [facility] Work Phone: Methamphetamine Ql n Normal [facility]; [facility] Work Phone: Opiates Ql (U) n Normal [facility] Work Phone: Ethyl Glucuronide Screen, Ur ineon 03-25-2022 Ethyl Glucuronide,Urine Negative Normal [facility] Comment on above: Result Comment: Ethy l Glucuronide has been screened by Immunoassay at a 500 ng/mL threshold. POSITIVE results are not confirmed by a more specific alternative method unless requested. If confirmation is needed, request confirmation under separate order. NOTE: These results are for medical treatment only. Analysis performed using non-forensic procedures. This test has not been cleared by the [place] Food and Drug Administration (FDA). The FDA has determined that such clearance or approval is not necessary. The performance characteristics have been determined by the clinical laboratories of [facility]. Performed By: #### E THGU #### [facility] [address] [place] [address] Acetaminophenon 03-24-2022 Acetaminophen [Mass/Vol] ug/mL Normal 10.0-30.0 [facility] Comment on above: Performed By: #### C MP3, ETOH4, ACET4, HEMDF, SAL33 #### [facility] [address] [place] [address] Comp Metabolic Panelon 03-24 ALP [Catalytic activity/Vol] 82 U/L Normal 38-126 [facility] Comment on above: Performed By: #### C MP3, ETOH4, ACET4, HEMDF, SAL33 #### [facility] [address] [place] [address] ALT [Catalytic activity/Vol] 19 U/L Normal 0-49 [facility] Comment on above: Result Comment: The ALT test is performed by an updated assay method. Please note that the reference intervals have been changed and are now sex specific. Performed By: #### C MP3, ETOH4, ACET4, HEMDF, SAL33 #### [facility] [address] [place] [address] Calcium [Mass/Vol] 9.7 mg/dL Normal 8.4-10.4 [facility] Comment on above: Performed By: #### C MP3, ETOH4, ACET4, HEMDF, SAL33 #### [facility] [address] [place] [address] Glucose [Mass/Vol] 129 mg/dL High 70-100 [facility] Comment on above: Performed By: #### C MP3, ETOH4, ACET4, HEMDF, SAL33 #### [facility] [address] [place] [address] Urea nitrogen [Mass/Vol] 18 mg/dL High 7-17 [facility] Comment on above: Performed By: #### C MP3, ETOH4, ACET4, HEMDF, SAL33 #### [facility] [address] [place] [address] Anion gap [Moles/Vol] 10 mmol/L Normal 3-13 [facility] Comment on above: Performed By: #### C MP3, ETOH4, ACET4, HEMDF, SAL33 #### [facility] [address] [place] [address] AST [Catalytic activity/Vol] 33 U/L Normal 15-46 [facility] Comment on above: Performed By: #### C MP3, ETOH4, ACET4, HEMDF, SAL33 #### [facility] [address] [place] [address] Bilirubin [Mass/Vol] 0.6 mg/dL Normal 0.2-1.3 [facility] Comment on above: Performed By: #### C MP3, ETOH4, ACET4, HEMDF, SAL33 #### [facility] [address] [place] [address] CO2 [Moles/Vol] 25 mmol/L Normal 22-30 [facility] Comment on above: Performed By: #### C MP3, ETOH4, ACET4, HEMDF, SAL33 #### [facility] [address] [place] [address] Creatinine [Mass/Vol] 1.01 mg/dL Normal 0.52-1.25 [facility] Comment on above: Performed By: #### C MP3, ETOH4, ACET4, HEMDF, SAL33 #### [facility] [address] [place] [address] eGFR OTHER > 90.0 Normal >60 [facility] Comment on above: Result Comment: KDIG O guidelines provide the following GFR categories: Stage GFR(ml/min/1.73 m2) Terms G1 >=90 Normal or high G2 60-89 Mildly decreased* G3a 45-59 Mildly to moderately decreased G3b 30-44 Moderately to severely decreased G4 15-29 Severely decreased G5 <15 Kidney failure *Relative to young adult level. In the absence of evidence of kidney damage, neither GFR category G1 nor G2 fulfill the criteria for CKD. The CKD-EPI equation is validated in individuals 18 years of age and older. Currently the best equation for estimating glomerular filtration rate (GFR) from serum creatinine in children is the Bedside Neri equation. It is less accurate in patients with extremes of muscle mass, restriction of dietary protein, ingestion of creatine, extra-renal metabolism of creatinine, or treatment with medications that affect renal tubular creatinine secretion. Performed By: #### C MP3, ETOH4, ACET4, HEMDF, SAL33 #### [facility] [address] [place] [address] GFR/1.73 sq M.predicted among blacks MDRD (S/P/Bld) [Vol rate/Area] mL/min/{1.73_m2} Normal >60 [facility] Comment on above: Performed By: #### C MP3, ETOH4, ACET4, HEMDF, SAL33 #### [facility] [address] [place] [address] Protein [Mass/Vol] 7.7 g/dL Normal 6.3-8.2 [facility] Comment on above: Performed By: #### C MP3, ETOH4, ACET4, HEMDF, SAL33 #### [facility] [address] [place] [address] Chloride [Moles/Vol] 103 mmol/L Normal 98-107 [facility] Comment on above: Performed By: #### C MP3, ETOH4, ACET4, HEMDF, SAL33 #### [facility] [address] [place] [address] Potassium [Moles/Vol] 3.9 mmol/L Normal 3.5-5.1 [facility] Comment on above: Performed By: #### C MP3, ETOH4, ACET4, HEMDF, SAL33 #### [facility] [address] [place] [address] Sodium [Moles/Vol] 138 mmol/L Normal 135-145 [facility] Comment on above: Performed By: #### C MP3, ETOH4, ACET4, HEMDF, SAL33 #### [facility] [address] [place] [address] Albumin [Mass/Vol] 4.8 g/dL Normal 3.5-5.0 [facility] Comment on above: Performed By: #### C MP3, ETOH4, ACET4, HEMDF, SAL33 #### [facility] [address] [place] [address] Drugs of Abuseon 03-24-2022 Phencyclidine (PCP), Ur Negative Normal [facility] Comment on above: Result Comment: The expected value for all of the drugs listed above is Negative. The following drugs or drug groups have been screened for by Immunoassay at the following thresholds: Amphetamine class (1000 ng/mL), Barbiturates (200 ng/mL), Benzodiazepines (200 ng/mL), Cocaine (300 ng/mL), Methadone (300 ng/mL), Opiates (300 ng/mL), Oxycodone (100 ng/mL), and PCP (25 ng/mL). NOTE: These results are for medical treatment only. Analysis performed using non-forensic procedures. POSITIVE results are NOT confirmed by a more specific alternative method unless requested. If confirmation is needed, request confirmation under separate order. Performed By: #### C OVAG, DRGA4 #### [facility] [address] [place] [address] Opiates, Ur Negative Normal [facility] Comment on above: Performed By: #### C OVAG, DRGA4 #### [facility] [address] [place] [address] Cocaine, Ur Negative Normal [facility] Comment on above: Performed By: #### C OVAG, DRGA4 #### [facility] [address] [place] [address] Methadone, Ur Negative Normal [facility] Comment on above: Performed By: #### C OVAG, DRGA4 #### [facility] [address] [place] [address] Amphetamines, Ur Negative Normal [facility] Comment on above: Performed By: #### C OVAG, DRGA4 #### [facility] [address] [place] [address] Barbiturates, Ur Negative Normal [facility] Comment on above: Performed By: #### C OVAG, DRGA4 #### [facility] [address] [place] [address] Benzodiazepines, Ur Negative Normal [facility] Comment on above: Performed By: #### C OVAG, DRGA4 #### [facility] [address] [place] [address] Oxycodone/Oxymorp osiris,Ur Negative Normal [facility] Comment on above: Performed By: #### C OVAG, DRGA4 #### [address] [place] [address] Ethanol Serum/Plasmaon 03-24 Ethanol-Serum/Essie sma < 0.010 Normal 0.000-0.010 [facility] Comment on above: Result Comment: NOTE : This result is for medical treatment only. Analysis performed using non-forensic procedures. Performed By: #### C MP3, ETOH4, ACET4, HEMDF, SAL33 #### [facility] [address] [place] [address] Hemogram w/ Autodiffon 03-24 Abs Baso Cnt 0.1 10*3/uL Normal 0.0-0.2 [facility] Comment on above: Performed By: #### C MP3, ETOH4, ACET4, HEMDF, SAL33 #### [facility] [address] [place] [address] Abs Neutrophile Cnt 7.2 10*3/uL High 1.8-7.0 [facility] Comment on above: Performed By: #### C MP3, ETOH4, ACET4, HEMDF, SAL33 #### [facility] [address] [place] [address] Basophils/100 WBC (Bld) 0.5 % Normal 0.0-2.0 [facility] Comment on above: Performed By: #### C MP3, ETOH4, ACET4, HEMDF, SAL33 #### [facility] [address] [place] [address] Eosinophils (Bld) [#/Vol] 0.0 10*3/uL Normal 0.0-0.5 [facility] Comment on above: Performed By: #### C MP3, ETOH4, ACET4, HEMDF, SAL33 #### [facility] [address] [place] [address] Eosinophils/100 WBC (Bld) 0.5 % Low 1.0-6.0 [facility] Comment on above: Performed By: #### C MP3, ETOH4, ACET4, HEMDF, SAL33 #### [facility] [address] [place] [address] Erythrocyte distribution width (RBC) [Ratio] 12.4 % Normal 11.5-14.5 [facility] Comment on above: Performed By: #### C MP3, ETOH4, ACET4, HEMDF, SAL33 #### [facility] [address] [place] [address] Granulocytes/100 WBC (Bld) 75.7 % Normal 40.0-80.0 [facility] Comment on above: Performed By: #### C MP3, ETOH4, ACET4, HEMDF, SAL33 #### [facility] [address] [place] [address] Hematocrit (Bld) [Volume fraction] 41.2 % Normal 40.0-52.0 [facility] Comment on above: Performed By: #### C MP3, ETOH4, ACET4, HEMDF, SAL33 #### [facility] [address] [place] [address] Hemoglobin (Bld) [Mass/Vol] 13.8 g/dL Normal 13.0-18.0 [facility] Comment on above: Performed By: #### C MP3, ETOH4, ACET4, HEMDF, SAL33 #### [facility] [address] [place] [address] Lymphocytes (Bld) [#/Vol] 1.6 10*3/uL Normal 1.0-4.3 [facility] Comment on above: Performed By: #### C MP3, ETOH4, ACET4, HEMDF, SAL33 #### [facility] [address] [place] [address] Lymphocytes/100 WBC (Bld) 17.4 % Low 20.0-40.0 [facility] Comment on above: Performed By: #### C MP3, ETOH4, ACET4, HEMDF, SAL33 #### [facility] [address] [place] [address] MCH (RBC) [Entitic mass] 29.2 pg Normal 26.0-34.0 [facility] Comment on above: Performed By: #### C MP3, ETOH4, ACET4, HEMDF, SAL33 #### [facility] [address] [place] [address] MCHC 33.5 % Normal 32.0-36.0 [facility] Comment on above: Performed By: #### C MP3, ETOH4, ACET4, HEMDF, SAL33 #### [facility] [address] [place] [address] MCV (RBC) [Entitic vol] 87.1 fL Normal 80.0-98.0 [facility] Comment on above: Performed By: #### C MP3, ETOH4, ACET4, HEMDF, SAL33 #### [facility] [address] [place] [address] Monocytes (Bld) [#/Vol] 0.6 10*3/uL Normal 0.0-0.8 [facility] Comment on above: Performed By: #### C MP3, ETOH4, ACET4, HEMDF, SAL33 #### [facility] [address] [place] [address] Monocytes/100 WBC (Bld) 5.9 % Normal 2.0-10.0 [facility] Comment on above: Performed By: #### C MP3, ETOH4, ACET4, HEMDF, SAL33 #### [facility] [address] [place] [address] Platelet mean volume (Bld) [Entitic vol] 7.2 fL Low 7.4-10.4 [facility] Comment on above: Performed By: #### C MP3, ETOH4, ACET4, HEMDF, SAL33 #### [facility] [address] [place] [address] Platelets (Bld) [#/Vol] 425 10*3/uL Normal 140-440 [facility] Comment on above: Performed By: #### C MP3, ETOH4, ACET4, HEMDF, SAL33 #### [facility] [address] [place] [address] RBC (Bld) [#/Vol] 4.73 10*6/uL Normal 4.40-5.90 [facility] Comment on above: Performed By: #### C MP3, ETOH4, ACET4, HEMDF, SAL33 #### [facility] [address] [place] [address] WBC (Bld) [#/Vol] 9.5 10*3/uL Normal 3.6-10.7 [facility] Comment on above: Performed By: #### C MP3, ETOH4, ACET4, HEMDF, SAL33 #### [facility] [address] [place] [address] SARS-CoV-2 Antigenon 022 SARS-CoV-2 Antigen Negative Normal Negative [facility] Comment on above: Result Comment: A negative result does not rule out the possibility of SARS-CoV-2 infection. NAAT-based methods should be considered for symptomatic patients presenting greater than seven days after onset of symptoms. Method: Lateral flow immunoassay. Fact sheets for healthcare providers and patients can be found at the following sites: https://www.fda.gov/media/456659/download https://www.fda.gov/media/598916/download Performed By: #### C OVAG, DRGA4 #### [facility] [address] [place] [address] Salicylateson 03-24-2022 Salicylates < 1.0 Normal 0.0-20.0 [facility] Comment on above: Performed By: #### C MP3, ETOH4, ACET4, HEMDF, SAL33 #### [facility] [address] [place] [address] CANNABINOIDS NATURAL (27310) Ordered By: Construction [employer] Cross[employer] Guard on 02-24-2022 CANNABINOIDS NATURAL ([id number]) >750 Normal [facility]; [facility] Work Phone: Comment on above: PATIENT NOT FASTINGP ERFORMED BY: UI [facility] [id number] [place] [id number] Information: [id number] LM CANNABINOIDS NATURAL ([id number]) Positive Abnormal [facility]; [facility] Work Phone: Comment on above: PATIENT NOT FASTINGP ERFORMED BY: UI [facility] [id number] [place] [id number] Information: CCU:[id number] LM INHOUSE COVID 19 (ONLY) RAPI D (25252)Ordered By: Ghislaine Christy on 12-30-2021 SARS-CoV-2 (COVID-19) RNA MITCH+probe Ql (Unsp spec) Negative Normal [facility]; [facility] Work Phone: INHOUSE Rapid Covid/ Flu A/ Flu BOrdered By: Ghislaine Christy on 11-13-2021 SARS-CoV-2 (COVID-19) RNA MITCH+probe Ql (Unsp spec) Negative Normal [facility]; [facility] Work Phone: OBSOLETEon 10-16-2021 OBSOLETE Refill (PSPJUANK) ISIDORO CHRISTY ([id number]) 3 M Date Time Provider Department 10/16/21 ZAI ANN During your visit today, we recorded the following information about you: Christianne Wadsworth 10/16/2021 9:40 AM Signed Patient's mother calling in requesting prescription refills. She is trying to get all medications from [facility] and at the same time, so she is requesting the following: Strattera and Intuniv: 20 day supply sent to [facility] and 90 day supply sent to [facility] home delivery. Bupropion 90 day supply to [facility] home delivery. Buspar 90 day supply to [facility]. Keren Fields 10/16/2021 2:08 PM Signed Please see message below. Patient phones requesting refills as follows: Pending Prescriptions Disp Refills ATOMOXETINE 40 MG CAPSULE 20 capsule 0 Sig: Take 1 capsule by mouth once daily. VIVIANE: No GUANFACINE ER 3 MG TABLET,EXTENDED RELEASE 24 HR 20 tablet 0 Sig: Take 1 tablet by mouth once daily. VIVIANE: No BUPROPION XL 150 MG TAB 90 tablet 2 Sig: Take 1 tablet by mouth once daily. VIVIANE: No BUSPIRONE 15 MG TABLET 180 tablet 2 Sig: Take 1 tablet by mouth twice daily. VIVIANE: No ATOMOXETINE 40 MG CAPSULE 90 capsule 2 Sig: Take 1 capsule by mouth once daily. VIVIANE: No GUANFACINE ER 3 MG TABLET,EXTENDED RELEASE 24 HR 90 tablet 2 Sig: Take 1 tablet by mouth once daily. VIVIANE: No Please review and advise. Keren Ann MD 10/16/2021 4:11 PM Signed Scripts approved as requested. Allergies As of Date: 10/16/2021 (No Known Allergies) Date Reviewed: 09/04/2021 Reviewed by: Zia Ann MD - Fully Assessed Reason for Visit: Refill Request [94] Order(s):atomoxetine (STRATTERA) 40 mg capsuleTake 1 capsule by mouth once daily.Disp: 20 capsuleRfl: 0 guanFACINE (INTUNIV ER) 3 mg [id number] 1 tablet by mouth once daily.Disp: 20 tabletRfl: 0 buPROPion XL (WELLBUTRIN XL) 150 mg 24 hr tabletTake 1 tablet by mouth once daily.Disp: 90 tabletRfl: 2 busPIRone (BUSPAR) 15 mg tabletTake 1 tablet by mouth twice daily.Disp: 180 tabletRfl: 2 atomoxetine (STRATTERA) 40 mg capsuleTake 1 capsule by mouth once daily.Disp: 90 capsuleRfl: 2 guanFACINE (INTUNIV ER) 3 mg [id number] 1 tablet by mouth once daily.Disp: 90 tabletRfl: 2 Prescriptions as of 10/19/2021 - atomoxetine (STRATTERA) 40 mg capsule Take 1 capsule by mouth once daily. - guanFACINE (INTUNIV ER) 3 mg Tb24 Take 1 tablet by mouth once daily. - buPROPion XL (WELLBUTRIN XL) 150 mg 24 hr tablet Take 1 tablet by mouth once daily. - busPIRone (BUSPAR) 15 mg tablet Take 1 tablet by mouth twice daily. - atomoxetine (STRATTERA) 40 mg capsule Take 1 capsule by mouth once daily. - guanFACINE (INTUNIV ER) 3 mg Tb24 Take 1 tablet by mouth once daily. - hydrOXYzine HCl (ATARAX) 25 mg tablet Take 1 tablet by mouth twice daily as needed for anxiety. Problem List As Of Date 10/16/2021 Noted Resolved Generalized anxiety disorder [F41.1] 02/09/2019 ADHD [F90.9] 02/09/2019 Substance use disorder [F19.90] 02/09/2019 Oppositional defiant disorder [F91.3] 02/09/2019 Major depressive disorder [F32.9] 12/28/2019 Prescriptions ordered this encounter Disp Refills Start End ATOMOXETINE 40 MG CAPSULE 20 c* 0 10/16/2021 Route: ORAL Sig: Take 1 capsule by mouth once daily. GUANFACINE ER 3 MG TABLET,EXTENDED R* 20 t* 0 10/16/2021 Route: ORAL Sig: Take 1 tablet by mouth once daily. BUPROPION XL 150 MG TAB 90 t* 2 10/16/2021 Route: ORAL Sig: Take 1 tablet by mouth once daily. BUSPIRONE 15 MG TABLET 180 * 2 10/16/2021 Route: ORAL Sig: Take 1 tablet by mouth twice daily. ATOMOXETINE 40 MG CAPSULE 90 c* 2 10/16/2021 Route: ORAL Sig: Take 1 capsule by mouth once daily. GUANFACINE ER 3 MG TABLET,EXTENDED R* 90 t* 2 10/16/2021 Route: ORAL Sig: Take 1 tablet by mouth once daily. Medications Discontinued During This Encounter Prescriptions - guanFACINE (INTUNIV ER) 3 mg Tb24 (Discontinued) Take 1 tablet by mouth once daily. - busPIRone (BUSPAR) 15 mg tablet (Discontinued) Take 1 tablet by mouth twice daily. - atomoxetine (STRATTERA) 40 mg capsule (Discontinued) Take 1 capsule by mouth once daily. - buPROPion XL (WELLBUTRIN XL) 150 mg 24 hr tablet (Discontinued) Take 1 tablet by mouth once daily. Encounter Status:Closed by CHRISTIANNE WADSWORTH on 10/19/21 Normal [facility] Rapid Covid/ Flu A/ Flu BOrdered By: Ghislaine Christy on 10-09-2021 SARS-CoV-2 (COVID-19) RNA MITCH+probe Ql (Unsp spec) neg all 3 Normal [facility]; [facility] Work Phone: OBSOLETEon 09-25-2021 OBSOLETE Refill (PSPDLK) ISIDORO CHRISTY ([id number]) 3 M Date Time Provider Department 09/25/21 ZIA NAN PSPDLK During your visit today, we recorded the following information about you: Savanna Campos Pss 09/25/2021 3:25 PM Signed Pts mother requesting refill of hydrOXYzine HCl (ATARAX) 25 mg tablet . She states it has not been requested in a long time because it took pt this much time to use prescription. Patient has been identified by name and date of : Yes RX INSTRUCTIONS: Patient aware RX will be sent to pharmacy. No need to notify patient. Pharmacy verified:Yes [id number] Savanna Perez RN 09/25/2021 3:28 PM Signed Patient has been identified by name and date of : Yes Pending Prescriptions Disp Refills HYDROXYZINE HCL 25 MG TABLET 60 tablet 2 Sig: Take 1 tablet by mouth twice daily as needed for anxiety. VIVIANE: No RX INSTRUCTIONS: Patient aware RX will be sent to pharmacy. No need to notify patient. Rosa Perez, RN Zia Ann MD 09/25/2021 4:57 PM Signed Medication Refill Request: Signed Prescriptions Disp Refills hydrOXYzine HCl (ATARAX) 25 mg tablet 60 tablet 5 Sig: Take 1 tablet by mouth twice daily as needed for anxiety. VIVIANE: No Authorizing Provider: ZIA ANN The medication was approved and escripted. Zia Ann MD No future appointments. Allergies As of Date: 09/25/2021 (No Known Allergies) Date Reviewed: 09/04/2021 Reviewed by: Zia Ann MD - Fully Assessed Reason for Visit: Refill Request [94] Order(s):hydrOXYzine HCl (ATARAX) 25 mg tabletTake 1 tablet by mouth twice daily as needed for anxiety.Disp: 60 tabletRfl: 5 Prescriptions as of 09/25/2021 - hydrOXYzine HCl (ATARAX) 25 mg tablet Take 1 tablet by mouth twice daily as needed for anxiety. - buPROPion XL (WELLBUTRIN XL) 150 mg 24 hr tablet Take 1 tablet by mouth once daily. - guanFACINE (INTUNIV ER) 3 mg Tb24 Take 1 tablet by mouth once daily. - busPIRone (BUSPAR) 15 mg tablet Take 1 tablet by mouth twice daily. - atomoxetine (STRATTERA) 40 mg capsule Take 1 capsule by mouth once daily. Problem List As Of Date 09/25/2021 Noted Resolved Generalized anxiety disorder [F41.1] 02/09/2019 ADHD [F90.9] 02/09/2019 Substance use disorder [F19.90] 02/09/2019 Oppositional defiant disorder [F91.3] 02/09/2019 Major depressive disorder [F32.9] 12/28/2019 Prescriptions ordered this encounter Disp Refills Start End HYDROXYZINE HCL 25 MG TABLET 60 t* 5 09/25/2021 Route: ORAL Sig: Take 1 tablet by mouth twice daily as needed for anxiety. Encounter Status:Closed by TARYN CLEMENTS on 09/25/21 [facility] Rapid Covid/ Flu A/ Flu BOrdered By: VANNESA Hess on 09-18-2021 SARS-CoV-2 (COVID-19) RNA MITCH+probe Ql (Unsp spec) Negative Normal [facility]; [facility] Work Phone: [place]ita 08-21-2021 CNPN Telephone (PSPDLK) ISIDORO CHRISTY ([id number]) 3 M Date Time Provider Department 08/21/21 ZIA ANN PSPDLK During your visit today, we recorded the following information about you: Tevin George 08/21/2021 9:10 AM Signed Pt's mother, Ghislaine, called. Stated that Isidoro has been experiencing depression and suicidal ideation. Ghislaine stated Isidoro's behavior may be a result of enforcing rules and consequences. She thinks his medications might need to be adjusted and requested a call back at [phone]. Ghislaine stated she is a practicing physician and call her 2x in a row, or to leave a detailed voicemail if she does not answer. Zia Ann MD 08/21/2021 11:11 AM Signed Returned call to mom at 11:01 AM Mom is concerned about substance use (dabs, delta9), so parents set consequences and he becomes upset and reports SI. Pt is seeing a substance use counselor 2x/week who is concerned for depression. Mom concerned that he would impulsively act on suicidal thoughts. Reviewed 3 prior SSRI trials all led to activation. Discussed SNRI vs bupropion. Agreed to bupropion XL trial to address mood, ADHD, and addiction. Will continue other rx for now, though may attempt to stop atomoxetine in future if bupropion provides adequate support for ADHD. Zia Ann MD Allergies As of Date: 08/21/2021 (No Known Allergies) Date Reviewed: 07/10/2021 Reviewed by: Zia Ann MD - Fully Assessed Reason for Visit: Patient Concern [Other] Order(s):buPROPion XL (WELLBUTRIN XL) 150 mg 24 hr tabletTake 1 tablet by mouth once daily.Disp: 30 tabletRfl: 2 Prescriptions as of 08/21/2021 - buPROPion XL (WELLBUTRIN XL) 150 mg 24 hr tablet Take 1 tablet by mouth once daily. - guanFACINE (INTUNIV ER) 3 mg Tb24 Take 1 tablet by mouth once daily. - busPIRone (BUSPAR) 15 mg tablet Take 1 tablet by mouth twice daily. - atomoxetine (STRATTERA) 40 mg capsule Take 1 capsule by mouth once daily. Problem List As Of Date 08/21/2021 Noted Resolved Generalized anxiety disorder [F41.1] 02/09/2019 ADHD [F90.9] 02/09/2019 Substance use disorder [F19.90] 02/09/2019 Oppositional defiant disorder [F91.3] 02/09/2019 Seasonal affective disorder (HCC) [F33.8] 12/28/2019 Prescriptions ordered this encounter Disp Refills Start End BUPROPION XL 150 MG TAB 30 t* 2 08/21/2021 Route: ORAL Sig: Take 1 tablet by mouth once daily. Encounter Status:Closed by ZIA ANN on 08/21/21 Normal [facility] Progress Noteon 07-30-2021 [employer] Authentication Interface Message Text Patient ID: Isidoro Christy is a 16 y.o. male. His chief complaint(s) include: 16 YEAR WELL CHILD Assessment 1. Encounter for routine child health examination without abnormal findings 2. Exercise counseling 3. Encounter for dietary counseling and surveillance Plan Isidoro was seen today for 16 year well child. Diagnoses and all orders for this visit: Encounter for routine child health examination without abnormal findings - PHQ9 Assessment With Score - Health Risk Assessment - ERICKAFFT Exercise counseling Encounter for dietary counseling and surveillance Return in about 1 year (around 07/30/2022) for well check. Subjective He is accompanied by his mother. 16 YEAR WELL CHILD Complications after delivery: parental limits and consequences for unacceptable behavior Home: Isidoro eats meals with family, has an adult to turn to for help and is permitted and able to make independent decisions. Isidoro has no home risk identified. Education: sIidoro is in 11th grade and is doing well. Eating: Isidoro eats regular meals including fruits and vegetables, eats breakfast, limits fast food and has a calcium source. Isidoro does not drink non-sweetened liquids and does not have concerns about body appearance. Activities & Sports: Isidoro has friends, plays recreational sports, participates in community activities and has drivers license. Drugs: Isidoro uses tobacco, uses drugs, uses alcohol and does vape. Safety: Isidoro has a violence free home. Sex: The patient does not currently have a sexual partner. The patient is interested in females. The patient has had sex. The patient has not had an STD. The patient's partner has had an STD: no. Suicidality: Isidoro has ways to cope with stress, has problems with sleep, has anxiety and is engaged in counseling. Isidoro has no suicidal ideation and has no homicidal ideation. Output Urine and Stool Pattern: Urine and Stool Pattern: Normal stool pattern, normal urine pattern. Sleep Sleeping Difficulty: difficulty falling asleep Teen Anticipatory Guidance The following anticipatory guidance was reviewed during the visit: Nutrition: limit junk food/fast food and soft drinks. Safety: home safety, use safety helmet/gear with activities and don't carry or use weapons. Social: avoid or limit screen time, explore heritage and cultural diversity, parental limits and consequences for unacceptable behavior and bullying. Health: age appropriate dental care, age appropriate sleep habits, elevated noise and hearing, self testicular exam, avoid situations where drugs and alcohol are present, how to resist peer pressure to smoke, drink, use drugs, if abusing drugs or alcohol help is available, seek assistance, don't use tobacco/ alcohol/ drugs/ diet pills/ inhalants, don't smoke or chew tobacco, contraception/practice safe sex/ use condoms, talk with trusted adult if feeling sad or nervous, discuss athletic conditioning/ weight training/weight supplements, learn to manage time and activities, be responsible for attendance/ homework/ course selection, learn about self and strengths, recognize and deal with stress, driving risks and limit sun exposure/use sunscreen. Screenings Previous Vaccine Reactions: No. Life events information was reviewed-no referral needed Tuberculosis Concerns: Negative Tuberculosis Screen Concerns: no TB Risk Factors Hearing Vision Concerns: The caregiver has no concerns about the patient's hearing. The caregiver has no concerns about the patient's vision. Hyperlipidemia Concerns: Negative Hyperlipidemia Screen Concerns: no Hyperlipidemia Risk Factors Primary Care Review of Systems Objective Vital Signs 07/30/21 1254 07/30/21 1258 BP: 129/60 118/64 Pulse: 88 Temp: 36.4 C (97.5 F) TempSrc: Temporal Weight: 77.8 kg Height: (!) 182.9 cm Body mass index is 23.26 kg/m . Physical Exam Nursing note reviewed. Constitutional: He appears well. He is active. No distress. HENT: Head: Atraumatic. Ears: Right Ear: Tympanic membrane and external ear normal. Left Ear: Tympanic membrane and external ear normal. Nose: Nose normal. Mouth/Throat: Mucous membranes are moist. Dentition is normal. Oropharynx is clear. Eyes: Conjunctivae and EOM are normal. No strabismus. Pupils are equal, round, and reactive to light. Neck: Neck supple. Thyroid normal. Cardiovascular: Normal rate, regular rhythm, S1 normal and S2 normal. Pulses are palpable. Heart murmur not heard. Pulmonary/Chest: Breath sounds normal. No respiratory distress. Exhibits no deformity. Abdominal: Soft. Bowel sounds are normal. He exhibits no distension and no mass. There is no hepatosplenomegaly. There is no abdominal tenderness. Genitourinary: Testes and penis normal. No inguinal hernia noted. Musculoskeletal: Cervical back: Normal range of motion and neck supple. General: Normal range of motion. Neurological: He is alert. He has n (more content not included)... Normal [facility] 2019 Novel Coronavirus (COVI D-19), MITCH ([id number])Ordered By: [employer] Cross[employer] Guard on 07-09-20212018 Novel Coronavirus (COVID-19), MITCH ([id number]) Detected Abnormal [facility]; [facility] Work Phone: Comment on above: Client Requested [place] gPatients who have a positive COVID-19 test result may now havetreatment options. Treatment options are available for patientswith mild to moderate symptoms and for hospitalized patients.Visit our website at [email or web address] forresources and information.This nucleic acid amplification test was developed and its performancecharacteristics determined by [employer]. Nucleic acidamplification tests include RT-PCR and TMA. This test has not beenFDA cleared or approved. This test has been authorized by FDA underan Emergency Use Authorization (EUA). This test is only authorizedfor the duration of time the declaration that circumstances existjustifying the authorization of the emergency use of in vitrodiagnostic tests for detection of SARS-CoV-2 virus and/or diagnosisof COVID-19 infection under section 564(b)(1) of the Act, 21 U.S.C.360bbb-3(b) (1), unless the authorization is terminated or revokedsooner.When diagnostic testing is negative, the possibility of a falsenegative result should be considered in the context of a patient'srecent exposures and the presence of clinical signs and symptomsconsistent with COVID-19. An individual without symptoms of COVID-19and who is not shedding SARS-CoV-2 virus would expect to have anegative (not detected) result in this assay. PATIENT NOT FASTINGP ERFORMED BY: [facility] [id number] Comp Metabolic Panelon 05-29 Albumin [Mass/Vol] 4.6 g/dL High 3.2-4.5 [facility] Comment on above: Order Comment: Relea se to patient->Automatic 02388&Blood Performed By: #### C MP #### [place] [address] ALP [Catalytic activity/Vol] 56 U/L Normal 52-141 [facility] Comment on above: Order Comment: Relea se to patient->Automatic 38731&Blood Performed By: #### C MP #### [place] [address] ALT [Catalytic activity/Vol] 13 U/L Normal 0-41 [facility] Comment on above: Order Comment: Relea se to patient->Automatic 21295&Blood Performed By: #### C MP #### [place] [address] AST [Catalytic activity/Vol] 17 U/L Normal 0-37 [facility] Comment on above: Order Comment: Relea se to patient->Automatic 27263&Blood Performed By: #### C MP #### [address] [address] Bili,Total 0.9 mg/dl Normal 0.0-1.0 [facility] Comment on above: Order Comment: Relea se to patient->Automatic 98614&Blood Performed By: #### C MP #### [address] [address] Calcium [Mass/Vol] 9.8 mg/dL Normal 7.6-11.0 [facility] Comment on above: Order Comment: Relea se to patient->Automatic 06761&Blood Performed By: #### C MP #### [address] [address] Chloride [Moles/Vol] 100 mmol/L Normal 96-108 [facility] Comment on above: Order Comment: Relea se to patient->Automatic 58845&Blood Performed By: #### C MP #### [address] [address] CO2 [Moles/Vol] 27.6 mmol/L Normal 22.0-29.0 [facility] Comment on above: Order Comment: Relea se to patient->Automatic 68200&Blood Performed By: #### C MP #### [address] [address] Creatinine [Mass/Vol] 0.95 mg/dL Normal 0.70-1.20 [facility] Comment on above: Order Comment: Relea se to patient->Automatic 26721&Blood Result Comment: Premature 0.3-1.0 mg/dL Performed By: #### C MP #### [address] [address] [place], [place] [id number] Glucose [Mass/Vol] 92 mg/dL Normal 70-99 [facility] Comment on above: Order Comment: Relea se to patient->Automatic 24725&Blood Result Comment: Criteria for Diagnosis of Diabetes(Effective 05/05/11): Fasting specimen (no caloric intake for at least 8 hours). <100 mg/dl Normal 100-125 mg/dl Increased Risk for Diabetes >125 mg/dl Diagnostic for Diabetes Random Glucose (any time of day without regard to last meal). >=200 mg/dl plus Classic Symptoms of Diabetes Performed By: #### C MP #### [address] [address] Potassium [Moles/Vol] 4.7 mmol/L Normal 3.3-5.1 [facility] Comment on above: Order Comment: Relea se to patient->Automatic 68482&Blood Performed By: #### C MP #### [address] [address] Protein [Mass/Vol] 7.5 g/dL Normal 6.0-8.0 [facility] Comment on above: Order Comment: Relea se to patient->Automatic 20964&Blood Performed By: #### C MP #### [address] [address] Sodium [Moles/Vol] 139 mmol/L Normal 133-145 [facility] Comment on above: Order Comment: Relea se to patient->Automatic 38455&Blood Performed By: #### C MP #### [address] [address] Urea nitrogen [Mass/Vol] 14 mg/dL Normal 4-19 [facility] Comment on above: Order Comment: Relea se to patient->Automatic 13432&Blood Performed By: #### C MP #### [address] [address] Complete Blood Counton 05-29 Differential Complete Automated Normal [facility] Comment on above: Order Comment: Relea se to patient->Automatic 03654&Blood Performed By: #### C BC #### [address] [address] Basophils/100 WBC (Bld) 0.90 % Normal 0.00-1.00 [facility] Comment on above: Order Comment: Relea se to patient->Automatic 81763&Blood Performed By: #### C BC #### [address] [address] Eosinophils/100 WBC (Bld) 1.90 % Normal 0.00-3.00 [facility] Comment on above: Order Comment: Relea se to patient->Automatic 35934&Blood Performed By: #### C BC #### [address] [address] Erythrocyte distribution width (RBC) [Ratio] 11.7 % Normal 0.0-14.4 [facility] Comment on above: Order Comment: Relea se to patient->Automatic 02504&Blood Performed By: #### C BC #### [address] [address] Hematocrit (Bld) [Volume fraction] 45.2 % Normal 36.0-47.0 [facility] Comment on above: Order Comment: Relea se to patient->Automatic 21937&Blood Performed By: #### C BC #### [address] [address] Hemoglobin (Bld) [Mass/Vol] 15.1 g/dL Normal 13.0-15.2 [facility] Comment on above: Order Comment: Relea se to patient->Automatic 23713&Blood Performed By: #### C BC #### [address] [address] Immature granulocytes/100 WBC (Bld) 0.20 % Normal [facility] Comment on above: Order Comment: Relea se to patient->Automatic 48105&Blood Result Comment: Jaycee ture Granulocyte Percent includes promyelocytes, myelocytes, and metamyelocytes. IG% > 1.0 indicates a left shift is present. With automated differentials, bands are included in the neutrophil count and not in the Immature Granulocyte Percent. Performed By: #### C BC #### [address] [address] Lymphocytes/100 WBC (Bld) 32.5 % Normal 25.0-45.0 [facility] Comment on above: Order Comment: Relea se to patient->Automatic 46286&Blood Performed By: #### C BC #### [address] [address] MCH (RBC) [Entitic mass] 29.0 pg Normal 25.0-35.0 [facility] Comment on above: Order Comment: Relea se to patient->Automatic 25585&Blood Performed By: #### C BC #### [address] [address] MCHC 33.4 % Normal 31.0-37.0 [facility] Comment on above: Order Comment: Relea se to patient->Automatic 54331&Blood Performed By: #### C BC #### [address] [address] MCV (RBC) [Entitic vol] 86.9 fL Normal 78.0-96.0 [facility] Comment on above: Order Comment: Relea se to patient->Automatic 04849&Blood Performed By: #### C BC #### [address] [address] Monocytes/100 WBC (Bld) 7.10 % High 3.00-6.00 [facility] Comment on above: Order Comment: Relea se to patient->Automatic 19585&Blood Performed By: #### C BC #### [address] [address] Neutrophils (Bld) [#/Vol] 3.1 10*3/uL Normal 1.5-7.0 [facility] Comment on above: Order Comment: Relea se to patient->Automatic 02871&Blood Performed By: #### C BC #### [address] [address] Neutrophils/100 WBC (Bld) 57.4 % Normal 34.0-64.0 [facility] Comment on above: Order Comment: Relea se to patient->Automatic 79781&Blood Performed By: #### C BC #### [address] [address] Nucleated RBC/100 WBC (Bld) [Ratio] 0.0 % Normal -1.0-0.0 [facility] Comment on above: Order Comment: Relea se to patient->Automatic 44851&Blood Performed By: #### C BC #### [address] [address] Platelet mean volume (Bld) [Entitic vol] 9.9 fL Normal [facility] Comment on above: Order Comment: Relea se to patient->Automatic 77642&Blood Result Comment: MPV is platelet range and age dependent Performed By: #### C BC #### [address] [address] Platelets (Bld) [#/Vol] 354 10*3/uL Normal 150-450 [facility] Comment on above: Order Comment: Relea se to patient->Automatic 66751&Blood Performed By: #### C BC #### [address] [address] RBC 5.20 10E12/L High 4.50-5.10 [facility] Comment on above: Order Comment: Relea se to patient->Automatic 89015&Blood Performed By: #### C BC #### [address] [address] WBC (Bld) [#/Vol] 5.4 10*3/uL Normal 4.5-13.0 [facility] Comment on above: Order Comment: Relea se to patient->Automatic 23976&Blood Performed By: #### C BC #### [address] [id number] TSH with reflex T4FRon 05-29 TSH with reflex T4FR 1.269 uIU/mL Normal 0.350-5.500 [facility] Comment on above: Order Comment: Relea se to patient->Automatic 08119&Blood Performed By: #### T SHR #### [address] [address] eGFRon 05-29-2021 eGFR 79.77 Normal [facility] Comment on above: Order Comment: Relea se to patient->Automatic 24854&Blood Result Comment: Refe rence range: > 3 months: >90 ml/min/1.73m^2 Ref. Range change effective 02/22/2018 Performed By: #### E GFR #### [address] [address] C. trachomatis/GC PCR Panel on [facility] 05-28-2021 C. trachomatis/GC PCR Panel on [facility] Reason for preventing automatic release->Other Release to patient->Manual release only 16794&Urine C. trachomatis PCR on [facility]: NEGATIVE-Chlamydia trachomatis DNA: NOT DETECTED. Source: URINE Collected: 05/28/21 09:34 Site: Received : 05/28/21 10:30 C. trachomatis PCR on [facility] FINAL 05/28/21 12:09 NEGATIVE-Chlamydia trachomatis DNA: NOT DETECTED. - GC PCR on [facility] FINAL 05/28/21 12:09 NEGATIVE-Neisseria gonorrhea DNA: NOT DETECTED. - Method: DNA detection by RT PCR on a GeneXpert analyzer. - NOTE: This Amplified DNA Assay should not be used for the evaluation of suspected sexual abuse or for other medico-legal indications. - Screening urine specimens for Chlamydia trachomatis and Neisseria gonorrhoeae using nucleic acid amplification is an accurate and sensitive method compared to standard techniques of detection of these pathogens. Because the pathogen is diluted in urine, it is somewhat less sensitive than a direct swab specimen evaluated by nucleic acid amplification techniques. Normal [facility] Comment on above: Performed By: #### C TNG #### [place] [address] Drugs of Abuse with THC, Uri neon 05-28-2021 Amphetamines Negative Normal Negative [facility] Comment on above: Order Comment: Reaso n for preventing automatic release->Other Release to patient->Manual release only 81911&Urine Release to patient->Automatic 62879&Urine Result Comment: Thre shold = 1000 ng/mL Performed By: #### D RGT #### [place] [address] Barbiturates Negative Normal Negative [facility] Comment on above: Order Comment: Reaso n for preventing automatic release->Other Release to patient->Manual release only 00210&Urine Release to patient->Automatic 05539&Urine Result Comment: Thre shold = 200 ng/mL Performed By: #### D RGT #### [place] [address] Benzodiazepines Negative Normal Negative [facility] Comment on above: Order Comment: Reaso n for preventing automatic release->Other Release to patient->Manual release only 67716&Urine Release to patient->Automatic 82602&Urine Result Comment: Thre shold = 200 ng/mL Performed By: #### D RGT #### [place] [address] Cocaine Negative Normal Negative [facility] Comment on above: Order Comment: Reaso n for preventing automatic release->Other Release to patient->Manual release only 78672&Urine Release to patient->Automatic 50379&Urine Result Comment: Thre shold = 300 ng/mL Performed By: #### D RGT #### [address] [id number] Methadone Negative Normal Negative [facility] Comment on above: Order Comment: Reaso n for preventing automatic release->Other Release to patient->Manual release only 76636&Urine Release to patient->Automatic 50157&Urine Result Comment: Thre shold = 300 ng/mL Performed By: #### D RGT #### [address] [id number] Opiates Negative Normal Negative [facility] Comment on above: Order Comment: Reaso n for preventing automatic release->Other Release to patient->Manual release only 93056&Urine Release to patient->Automatic 18826&Urine Result Comment: Thre shold = 300 ng/mL Performed By: #### D RGT #### [address] [id number] Oxycodone Negative Normal Negative [facility] Comment on above: Order Comment: Reaso n for preventing automatic release->Other Release to patient->Manual release only 52107&Urine Release to patient->Automatic 32061&Urine Result Comment: Thre shold = 300 ng/mL Performed By: #### D RGT #### [address] [id number] PCP-Phencyclidine Negative Normal Negative [facility] Comment on above: Order Comment: Reaso n for preventing automatic release->Other Release to patient->Manual release only 74688&Urine Release to patient->Automatic 56633&Urine Result Comment: Thre shold = 25 ng/mL Performed By: #### D RGT #### [address] [address] THC50, Urine Positive Abnormal Negative [facility] Comment on above: Order Comment: Reaso n for preventing automatic release->Other Release to patient->Manual release only 81495&Urine Release to patient->Automatic 13123&Urine Result Comment: Thre shold = 50 ng/mL Performed By: #### D RGT #### [address] [address] JEFFERSON Test Comment ----- Normal [facility] Comment on above: Order Comment: Reaso n for preventing automatic release->Other Release to patient->Manual release only 39289&Urine Release to patient->Automatic 31306&Urine Result Comment: Note: This testing is intended for medical management and treatment only. Analysis performed using non-forensic procedures. Performed By: #### D RGT #### [address] [address] ED Provider Progress Noteon 05-28-2021 [employer] Authentication Interface Message Text Isidoro Christy : 2005 Chief Complaint Patient presents with P.I.R.C. No Known Allergies DOS: 05/28/2021 This is a 16yoM presents to the ED for revaluation of suicidal ideation. He reports he is not feeling well given changes in medication lately. At home he takes strattera, wellbutrin and vyvanse. Per mother he was abusing vyvanse as he was drinking alcohol with it and sometimes taking extra pills looking for the high so she stopped it suddenly 2 days ago. Reports suicidal ideations with plans to warner gas, use belt to choke himself. Patient does report he has these thoughts but would never really hurt himself. Denies homicidal ideation. Has upcoming counselor appointment. Review of Systems Constitutional: Positive for activity change. HENT: Negative for rhinorrhea, sore throat and trouble swallowing. Eyes: Negative for visual disturbance. Respiratory: Negative for cough and shortness of breath. Cardiovascular: Negative for chest pain. Gastrointestinal: Negative for abdominal pain and vomiting. Endocrine: Negative for polyuria. Genitourinary: Negative for dysuria. Musculoskeletal: Negative for back pain. Neurological: Negative for headaches. Psychiatric/Behavioral: Positive for behavioral problems and suicidal ideas. Past Medical History: Diagnosis Date ADHD (attention deficit hyperactivity disorder) Anxiety Depression History reviewed. No pertinent surgical history. Pediatric History Patient Parents/Guardians Ghislaine Christy (Mother/Guardian) Ge Christy (Father/Guardian) Other Topics Concern Not on file Social History Narrative Not on file ED Triage Vitals Date and Time Temp Temp src Pulse Resp BP SpO2 Weight User 05/28/21 0307 36.1 C (97 F) Temporal 64 18 132/72 100 % 76 kg CAW Physical Exam Vitals and nursing note reviewed. Constitutional: Appearance: Normal appearance. HENT: Head: Normocephalic. Right Ear: External ear normal. Left Ear: External ear normal. Nose: Nose normal. Mouth/Throat: Mouth: Mucous membranes are moist. Eyes: Extraocular Movements: Extraocular movements intact. Conjunctiva/sclera: Conjunctivae normal. Pupils: Pupils are equal, round, and reactive to light. Neck: Musculoskeletal: Normal range of motion and neck supple. Cardiovascular: Rate and Rhythm: Normal rate and regular rhythm. Pulses: Normal pulses. Heart sounds: Normal heart sounds. Pulmonary: Effort: Pulmonary effort is normal. Breath sounds: Normal breath sounds. Abdominal: General: Abdomen is flat. Musculoskeletal: General: Normal range of motion. Skin: General: Skin is warm. Capillary Refill: Capillary refill takes less than 2 seconds. Neurological: General: No focal deficit present. Mental Status: He is alert and oriented to person, place, and time. Psychiatric: Mood and Affect: Mood normal. Procedures MDM 16yoM presents to the ED for suicidal ideation. Vital signs on admission unremarkable. On exam patient has flat affect with low tone voice. After [facility] worker evaluation patient deemed appropriate for admission. Patient was admitted to psych service for suicidal ideation. ED Course: Diagnosis' considered: suicidal ideation, depression, substance abuse. Labs/Radiology: Consults: No orders of the defined types were placed in this encounter. Medical Record/Transferring Institution Record: Treatment/Reassessment: Encounter Documentation/Handoff: Final Clinical Impression/Diagnosis as of May 28 637 Suicidal ideation I personally performed wesley portions of the history and physical examination of this patient and discussed the management plan with the resident. I reviewed the resident's note. The findings and the plan of care are set forth above. 16 yo male presenting with SI. Patient states he has difficulty handling his emotions when he's not using drugs. Has been using THC daily for >1 year. Also drinks alcohol, last several weeks ago and intermittently has taken pills. States he feels like dying when he's not using and would warner or strangle himself. Denies HI. Denies AVH. Patient otherwise in normal state of health. Lungs ctab, heart rrr, abd soft nt/nd. [facility] and admitted to psych for further management. Kobe Ortega MD 2:26 PM 05/28/2021 Normal [facility] Urinalysis,Automatedon 05-28 RBC (U) [#/Vol] 0.0 /uL Normal 0.0-20.0 [facility] Comment on above: Order Comment: Reaso n for preventing automatic release->Other Release to patient->Manual release only 78904&Urine Release to patient->Automatic 42195&Urine Performed By: #### U FMIC #### [place] [address] Squamous Epithelial Cells 1 /uL Normal 0-20 [facility] Comment on above: Order Comment: Reaso n for preventing automatic release->Other Release to patient->Manual release only 96158&Urine Release to patient->Automatic 82325&Urine Performed By: #### U FMIC #### [place] [address] WBC (U) [#/Vol] 1.0 /uL Normal 0.0-20.0 [facility] Comment on above: Order Comment: Reaso n for preventing automatic release->Other Release to patient->Manual release only 70013&Urine Release to patient->Automatic 64814&Urine Performed By: #### U FMIC #### [address] [address] Urinalysis,Completeon 2020 Volume 12 ml Normal 12 [facility] Comment on above: Order Comment: Reaso n for preventing automatic release->Other Release to patient->Manual release only 65613&Urine Release to patient->Automatic 39154&Urine Performed By: #### U ACOM #### [address] [address] Bilirubin,urine Negative Normal Negative [facility] Comment on above: Order Comment: Reaso n for preventing automatic release->Other Release to patient->Manual release only 61045&Urine Release to patient->Automatic 38323&Urine Performed By: #### U ACOM #### [address] [address] Character Clear Normal [facility] Comment on above: Order Comment: Reaso n for preventing automatic release->Other Release to patient->Manual release only 19120&Urine Release to patient->Automatic 04982&Urine Performed By: #### U ACOM #### [address] [address] Color (U) Straw Normal [facility] Comment on above: Order Comment: Reaso n for preventing automatic release->Other Release to patient->Manual release only 55291&Urine Release to patient->Automatic 58639&Urine Performed By: #### U ACOM #### [address] [address] Glucose Ql (U) Negative Normal Negative [facility] Comment on above: Order Comment: Reaso n for preventing automatic release->Other Release to patient->Manual release only 01963&Urine Release to patient->Automatic 43559&Urine Performed By: #### U ACOM #### [address] [address] Ketones Ql (U) Negative Normal Negative [facility] Comment on above: Order Comment: Reaso n for preventing automatic release->Other Release to patient->Manual release only 41754&Urine Release to patient->Automatic 08900&Urine Performed By: #### U ACOM #### [address] [address] Leukocyte esterase Test strip Ql (U) Negative Normal Negative [facility] Comment on above: Order Comment: Reaso n for preventing automatic release->Other Release to patient->Manual release only 77712&Urine Release to patient->Automatic 60811&Urine Performed By: #### U ACOM #### [place] [address] Nitrite Ql (U) Negative Normal Negative [facility] Comment on above: Order Comment: Reaso n for preventing automatic release->Other Release to patient->Manual release only 69839&Urine Release to patient->Automatic 50987&Urine Performed By: #### U ACOM #### [place] [address] pH, Urine 7.0 Normal 5.0-8.0 [facility] Comment on above: Order Comment: Reaso n for preventing automatic release->Other Release to patient->Manual release only 48397&Urine Release to patient->Automatic 26330&Urine Performed By: #### U ACOM #### [place] [address] Protein,Ur Negative Normal Neg.-Trace [facility] Comment on above: Order Comment: Reaso n for preventing automatic release->Other Release to patient->Manual release only 42289&Urine Release to patient->Automatic 27562&Urine Performed By: #### U ACOM #### [address] [address] Specific gravity (U) [Rel density] 1.006 Normal 1.005-1.030 [facility] Comment on above: Order Comment: Reaso n for preventing automatic release->Other Release to patient->Manual release only 07375&Urine Release to patient->Automatic 43195&Urine Performed By: #### U ACOM #### [facility] [address] [place] [address] Urobilinogen (U) [Mass/Vol] 0.2 mg/dL Normal Negative [facility] Comment on above: Order Comment: Reaso n for preventing automatic release->Other Release to patient->Manual release only 71375&Urine Release to patient->Automatic 60319&Urine Performed By: #### U ACOM #### [facility] [address] [place] [address] CNPCary 03-20-2021 CNPN Telephone (PSPDLK) ISIDORO CHRISTY ([id number]) 3 M Date Time Provider Department 03/20/21 ZIA ANN PSPDLK During your visit today, we recorded the following information about you: Tevin George 03/20/2021 2:36 PM Signed [phone] Pt's mother,Ghislaine, (identified herself as a physician) called. Stated that pt has been experiencing a hard time completing his school work/assignments, in addition, pt has discontinued used of vape nicotine and marijuana edibles. Ghislaine stated that pt told her he might want to start using again because it helped him get his work done. Ghislaine stated that pt used lisdexamfetamine (VYVANSE) 30 mg capsule in the past, but "isn't sure" if he wants to be on it again because he is "predisposed to addiction." Pt's mother requested a call back at [phone], leave a detailed voicemail if no answer. Zia Ann MD 03/20/2021 6:26 PM Signed Please call mom- I am OK with him trying Vyvanse again, at least for the rest of the school year, then we can reassess. Risk of medication abuse or diversion is lower with Vyvanse than with other medicines, and controlling his ADHD-related impulsivity will help with his decision making. I sent a month supply to [facility] pharmacy. Medication Refill Request: Signed Prescriptions Disp Refills lisdexamfetamine (VYVANSE) 30 mg capsule 30 capsule 0 Sig: Take 1 capsule by mouth once daily for 30 days. TWILA Class: C-II Authorizing Provider: ZIA ANN My Last OARRS Check for this patient OARRS REPORTING HISTORY 10/13/2019 Status Completed User ZIA ANN PDMP website checked and validated. All prescriptions have been APPROPRIATELY filled. No suspicious activity was identified. 03/20/2021 by Zia Ann MD The medication was approved and e-scripted. Zia Ann MD Future Appointments Date Time Provider Department Center 04/11/2021 9:45 AM Zia Ann PSPDLK [facility] 07/10/2021 9:45 AM Zia Ann PSPDLK [facility] Crissy [facility] [place] 03/20/2021 7:16 PM Signed Notified pt's mom Allergies As of Date: 03/20/2021 (No Known Allergies) Date Reviewed: 01/09/2021 Reviewed by: Zia Ann - Fully Assessed Reason for Visit: Information [1328] Primary Visit Diagnosis:Attention deficit hyperactivity disorder (ADHD), combined type [F90.2] Order(s):lisdexamfetamine (VYVANSE) 30 mg capsuleTake 1 capsule by mouth once daily for 30 days.Disp: 30 capsuleRfl: 0 Prescriptions as of 03/20/2021 Sig: LISDEXAMFETAMINE 30 MG CAPSULE Take 1 capsule by mouth once * GUANFACINE ER 3 MG TABLET,EXT* Take 1 tablet by mouth once d* BUSPIRONE 15 MG TABLET Take 1 tablet by mouth twice * ATOMOXETINE 40 MG CAPSULE Take 1 capsule by mouth once * HYDROXYZINE HCL 25 MG TABLET Take 1 tablet by mouth twice * Problem List As Of Date 03/20/2021 Noted Resolved Generalized anxiety disorder [F41.1] 02/09/2019 ADHD [F90.9] 02/09/2019 Substance use disorder [F19.90] 02/09/2019 Oppositional defiant disorder [F91.3] 02/09/2019 Seasonal affective disorder (HCC) [F33.8] 12/28/2019 Prescriptions ordered this encounter Disp Refills Start End LISDEXAMFETAMINE 30 MG CAPSULE 30 c* 0 03/20/2021 04/19/2021 Route: ORAL Sig: Take 1 capsule by mouth once daily for 30 days. Encounter Status:Closed by CRISSY BURNS MA on 03/20/21 Normal [facility] 2019 Novel Coronavirus (COVI D-19), MITCH ([id number])Ordered By: [employer] Guard on 01-02-20212018 Novel Coronavirus (COVID-19), MITCH ([id number]) Not Detected Normal [facility]; [facility] Work Phone: Comment on above: This nucleic acid am plification test was developed and its performancecharacteristics determined by [employer]. Nucleic acidamplification tests include RT-PCR and TMA. This test has not beenFDA cleared or approved. This test has been authorized by FDA underan Emergency Use Authorization (EUA). This test is only authorizedfor the duration of time the declaration that circumstances existjustifying the authorization of the emergency use of in vitrodiagnostic tests for detection of SARS-CoV-2 virus and/or diagnosisof COVID-19 infection under section 564(b)(1) of the Act, 21 U.S.C.360bbb-3(b) (1), unless the authorization is terminated or revokedsooner.When diagnostic testing is negative, the possibility of a falsenegative result should be considered in the context of a patient'srecent exposures and the presence of clinical signs and symptomsconsistent with COVID-19. An individual without symptoms of COVID-19and who is not shedding SARS-CoV-2 virus would expect to have anegative (not detected) result in this assay. PERFORMED BY: Arpeggi Ciwyio9932 [facility] [id number] 2018 Novel Coronavirus (COVID-19), MITCH (26606) Not detected Normal [facility]; [facility] Work Phone: Comment on above: This nucleic acid am plification test was developed and its performancecharacteristics determined by [employer]. Nucleic acidamplification tests include RT-PCR and TMA. This test has not beenFDA cleared or approved. This test has been authorized by FDA underan Emergency Use Authorization (EUA). This test is only authorizedfor the duration of time the declaration that circumstances existjustifying the authorization of the emergency use of in vitrodiagnostic tests for detection of SARS-CoV-2 virus and/or diagnosisof COVID-19 infection under section 564(b)(1) of the Act, 21 U.S.C.360bbb-3(b) (1), unless the authorization is terminated or revokedsooner.When diagnostic testing is negative, the possibility of a falsenegative result should be considered in the context of a patient'srecent exposures and the presence of clinical signs and symptomsconsistent with COVID-19. An individual without symptoms of COVID-19and who is not shedding SARS-CoV-2 virus would expect to have anegative (not detected) result in this assay. PERFORMED BY: [id number] [place] [id number] CBC, Platelets & Auto Diff ( [id number])Ordered By: Construction [employer] Crossing Guard on 10-22-2020 Basophils (Bld) [#/Vol] 0.0 {x10E3/uL} Normal 0.0-0.3 [facility] Work Phone: Comment on above: PATIENT WAS FASTINGP ERFORMED BY: [employer] [place] [id number] Basophils (Bld) [#/Vol] 0.0 10*3/uL Normal 0.0-0.3 [facility]; [facility] Work Phone: Comment on above: PATIENT WAS FASTINGP ERFORMED BY: [employer] [place] [id number] Basophils/100 WBC (Bld) 1 % Normal [facility] Work Phone: Comment on above: PATIENT WAS FASTINGP ERFORMED BY: [employer] [facility] [id number] Eosinophils (Bld) [#/Vol] 0.2 {x10E3/uL} Normal 0.0-0.4 [facility] Work Phone: Comment on above: PATIENT WAS FASTINGP ERFORMED BY: TREVOR [facility] Feekze8201 [facility] [id number] Eosinophils (Bld) [#/Vol] 0.2 10*3/uL Normal 0.0-0.4 [facility]; [facility] Work Phone: Comment on above: PATIENT WAS FASTINGP ERFORMED BY: TREVOR [facility] Gtjfgg4424 [facility] [id number] Eosinophils/100 WBC (Bld) 4 % Normal [facility] Work Phone: Comment on above: PATIENT WAS FASTINGP ERFORMED BY: TREVOR [facility]Saint [facility] Gyiviq0366 [facility] [id number] Erythrocyte distribution width (RBC) [Ratio] 12.5 % Normal 11.6-15.4 [facility] Work Phone: Comment on above: PATIENT WAS FASTINGP ERFORMED BY: TREVOR [facility]Det[facility]ceiving Hospital6370 [facility] [id number] Hematocrit (Bld) [Volume fraction] 44.9 % Normal 37.5-51.0 [facility] Work Phone: Comment on above: PATIENT WAS FASTINGP ERFORMED BY: [facility]6370 [facility] [id number] Hemoglobin (Bld) [Mass/Vol] 14.9 g/dL Normal 13.0-17.7 [facility] Work Phone: Comment on above: PATIENT WAS FASTINGP ERFORMED BY: TREVOR LabCoNew Bridge Medical CenterZwhled5123 [facility] [id number] Immature granulocytes (Bld) [#/Vol] 0.0 {x10E3/uL} Normal 0.0-0.1 [facility] Work Phone: Comment on above: PATIENT WAS FASTINGP ERFORMED BY: CB [facility] Denzvx4673 [address] RoadAlleghany Healthin [place] [id number] Immature granulocytes (Bld) [#/Vol] 0.0 10*3/uL Normal 0.0-0.1 [facility]; [facility] Work Phone: Comment on above: PATIENT WAS FASTINGP ERFORMED BY: [facility] Ydhqcl4181 [facility]in [place] [id number] Immature granulocytes/100 WBC (Bld) 0 % Normal [facility] Work Phone: Comment on above: PATIENT WAS FASTINGP ERFORMED BY: [facility] Yynsbo4689 [facility] [id number] Lymphocytes (Bld) [#/Vol] 1.8 {x10E3/uL} Normal 0.7-3.1 [facility] Work Phone: Comment on above: PATIENT WAS FASTINGP ERFORMED BY: [facility] Bhdwad2187 [facility] [id number] Lymphocytes (Bld) [#/Vol] 1.8 10*3/uL Normal 0.7-3.1 [facility]; [facility] Work Phone: Comment on above: PATIENT WAS FASTINGP ERFORMED BY: TREVOR [facility] Bdvgyi9622 [facility]in [place] [id number] Lymphocytes/100 WBC (Bld) 38 % Normal [facility] Work Phone: Comment on above: PATIENT WAS FASTINGP ERFORMED BY: [facility] Ynjgzs9188 [facility] [id number] MCH (RBC) [Entitic mass] 29.7 pg Normal 26.6-33.0 [facility] Work Phone: Comment on above: PATIENT WAS FASTINGP ERFORMED BY: [facility] Obxzrn3532 [facility] [id number] MCHC (RBC) [Mass/Vol] 33.2 g/dL Normal 31.5-35.7 [facility] Work Phone: Comment on above: PATIENT WAS FASTINGP ERFORMED BY: TREVOR Dixon6370 [address] RoadDublin [place] [id number] MCV (RBC) [Entitic vol] 90 fL Normal 79-97 [facility] Work Phone: Comment on above: PATIENT WAS FASTINGP ERFORMED BY: TREVOR Dixon6370 [address] RoadDublin [place] [id number] Monocytes (Bld) [#/Vol] 0.4 {x10E3/uL} Normal 0.1-0.9 [facility] Work Phone: Comment on above: PATIENT WAS FASTINGP ERFORMED BY: TREVOR SchwarzSaint [facility] Lrrimu0027 [address] RoadDublin [place] [id number] Monocytes (Bld) [#/Vol] 0.4 10*3/uL Normal 0.1-0.9 [facility]; [facility] Work Phone: Comment on above: PATIENT WAS FASTINGP ERFORMED BY: TREVOR Dixon6370 [address] RoadDublin [place] [id number] Monocytes/100 WBC (Bld) 9 % Normal [facility] Work Phone: Comment on above: PATIENT WAS FASTINGP ERFORMED BY: TREVOR Osei Hvksmt9032 [address] RoadDublin [place] [id number] Neutrophils (Bld) [#/Vol] 2.4 {x10E3/uL} Normal 1.4-7.0 [facility] Work Phone: Comment on above: PATIENT WAS FASTINGP ERFORMED BY: KarishmaSaint [facility] Dlapcf8421 [address] RoadDublin [place] [id number] Neutrophils (Bld) [#/Vol] 2.4 10*3/uL Normal 1.4-7.0 [facility]; [facility] Work Phone: Comment on above: PATIENT WAS FASTINGP ERFORMED BY: TREVOR Osei Gdrmzu4378 [address] RoadDublin [place] [id number] Neutrophils/100 WBC (Bld) 48 % Normal [facility] Work Phone: Comment on above: PATIENT WAS FASTINGP ERFORMED BY: CB [facility] Jqpbmo5147 [address] RoadDublin [place] [id number] Platelets (Bld) [#/Vol] 323 {x10E3/uL} Normal 150-450 [facility] Work Phone: Comment on above: PATIENT WAS FASTINGP ERFORMED BY: CB [facility] Okqmtf7171 [address] RoadDublin [place] [id number] Platelets (Bld) [#/Vol] 323 10*3/uL Normal 150-450 [facility]; [facility] Work Phone: Comment on above: PATIENT WAS FASTINGP ERFORMED BY: CB [facility] Dfdccn8232 [address] RoadDublin [place] [id number] RBC (Bld) [#/Vol] 5.01 {x10E6/uL} Normal 4.14-5.80 [facility] Internal Medicine Work Phone: Comment on above: PATIENT WAS FASTINGP ERFORMED BY: CB [facility] Dsbjlx0993 [address] RoadDublin [place] [id number] RBC (Bld) [#/Vol] 5.01 10*6/uL Normal 4.14-5.80 [facility] Internal Medicine; [facility] Work Phone: Comment on above: PATIENT WAS FASTINGP ERFORMED BY: CB [facility] Tpjgcm7810 [address] RoadDublin [place] [id number] WBC (Bld) [#/Vol] 4.9 {x10E3/uL} Normal 3.4-10.8 [facility] Internal Medicine Work Phone: Comment on above: PATIENT WAS FASTINGP ERFORMED BY: CB [facility] Dwlylg2868 [address] RoadDublin [place] [id number] WBC (Bld) [#/Vol] 4.9 10*3/uL Normal 3.4-10.8 [facility] Internal Medicine; [facility] Work Phone: Comment on above: PATIENT WAS FASTINGP ERFORMED BY: CB [facility] Fdjpom4219 [address] RoadDublin [place] [id number] FERRITIN ([id number])Ordered By: [employer] on 10-22-2020 Ferritin [Mass/Vol] 95 ng/mL Normal 16-124 [facility] Work Phone: Comment on above: PATIENT WAS FASTINGP ERFORMED BY: TREVOR [facility] Lopewi1315 [address] RoadDublin [place] [id number] Iron Binding Capacity (TIBC) (27904)Ordered By: [employer] Crossing Guard on 10-22-2020 Iron [Mass/Vol] 150 ug/dL Normal 26-169 [facility] Internal Medicine Work Phone: Comment on above: PATIENT WAS FASTINGP ERFORMED BY: CB [facility] Jhfdsa9117 [address] RoadDublin [place] [id number] Iron binding capacity [Mass/Vol] 320 ug/dL Normal 250-450 [facility] Work Phone: Comment on above: PATIENT WAS FASTINGP ERFORMED BY: TREVOR [facility] Tbtakk4652 [address] RoadDublin [place] [id number] Iron binding capacity.unsatura paty [Mass/Vol] 170 ug/dL Normal 148-395 [facility] Work Phone: Comment on above: PATIENT WAS FASTINGP ERFORMED BY: TREVOR [facility] Ckmvwr1707 [address] RoadDublin [place] [id number] Iron saturation [Mass fraction] 47 % Normal 15-55 [facility] Work Phone: Comment on above: PATIENT WAS FASTINGP ERFORMED BY: TREVOR [facility] Xmfmdo6028 [address] RoadDublin [place] [id number] LIPID PANEL (55238)Ordered B y: [employer] on 10-22-2020 Cholesterol [Mass/Vol] 107 mg/dL Normal 100-169 [facility] Work Phone: Comment on above: PATIENT WAS FASTINGP ERFORMED BY: CB [facility] Pmwbav5705 [address] RoadDublin [place] [id number] Cholesterol in HDL [Mass/Vol] 58 mg/dL Normal [facility] Work Phone: Comment on above: PATIENT WAS FASTINGP ERFORMED BY: CB [facility] Yadasd9839 [address] RoadDublin [place] [id number] Cholesterol in LDL/Cholesterol in HDL [Mass ratio] 0.6 {ratio} Normal 0.0-3.6 [facility] Work Phone: Comment on above: LDL/HDL Ratio Men Wo men 1/2 Avg.Risk 1.0 1.5 Avg.Risk 3.6 3.2 2X Avg.Risk 6.2 5.0 3X Avg.Risk 8.0 6.1 PATIENT WAS FASTINGP ERFORMED BY: TREVOR Borgeslin6370 D8A GroupFormerly [facility] [id number] Triglyceride [Mass/Vol] 63 mg/dL Normal 0-89 [facility] Work Phone: Comment on above: PATIENT WAS FASTINGP ERFORMED BY: TREVOR BorgesOnVantageFormerly [facility] [id number] LIPID PANEL (22961) 14 mg/dL Normal 5-40 [facility] Work Phone: Comment on above: PATIENT WAS FASTINGP ERFORMED BY: TREVOR BorgesOnVantageFormerly [facility] [id number] LIPID PANEL (64624) 35 mg/dL Normal 0-109 [facility] Work Phone: Comment on above: PATIENT WAS FASTINGP ERFORMED BY: TREVOR Borgeslin6370 D8A GroupFormerly [facility] [id number] LIPID PANEL (02319) 0.6 {ratio} Normal 0.0-3.6 [facility]; [facility] Work Phone: Comment on above: LDL/HDL Ratio Men Wo men 1/2 Avg.Risk 1.0 1.5 Avg.Risk 3.6 3.2 2X Avg.Risk 6.2 5.0 3X Avg.Risk 8.0 6.1 PATIENT WAS FASTINGP ERFORMED BY: TREVOR FreedcampAri BorgesGxcbgw6892 D8A GroupFormerly [facility] [id number] Metabolic Panel, Comprehensi ve (02286)Ordered By: [employer] Cross[employer] Guard on 10-22-2020 Albumin [Mass/Vol] 4.5 g/dL Normal 4.1-5.2 [facility] Work Phone: Comment on above: PATIENT WAS FASTINGP ERFORMED BY: TREVOR [facility] Woqqfv6553 [address] RoadDublin [place] [id number] Albumin/Globulin [Mass ratio] 1.7 {ratio} Normal 1.2-2.2 [facility] Work Phone: Comment on above: PATIENT WAS FASTINGP ERFORMED BY: TREVOR [facility] Dlsiam4701 [address] RoadDublin [place] [id number] ALP [Catalytic activity/Vol] 71 [iU]/L Normal 71-186 [facility] Work Phone: Comment on above: PATIENT WAS FASTINGP ERFORMED BY: TREVOR [facility] Oatoct6000 [address] RoadDublin [place] [id number] ALP [Catalytic activity/Vol] 71 U/L Normal 71-186 [facility]; [facility] Work Phone: Comment on above: PATIENT WAS FASTINGP ERFORMED BY: TREVOR [facility] Vicktd8997 [address] RoadDublin [place] [id number] ALT [Catalytic activity/Vol] 13 [iU]/L Normal 0-30 [facility] Work Phone: Comment on above: PATIENT WAS FASTINGP ERFORMED BY: TREVOR [facility] Xrfscl2530 [address] RoadDublin [place] [id number] ALT [Catalytic activity/Vol] 13 U/L Normal 0-30 [facility]; [facility] Work Phone: Comment on above: PATIENT WAS FASTINGP ERFORMED BY: [facility] Bulqta4237 [address] RoadDublin [place] [id number] AST [Catalytic activity/Vol] 18 [iU]/L Normal 0-40 [facility] Work Phone: Comment on above: PATIENT WAS FASTINGP ERFORMED BY: [facility] Ocrerx5089 [address] RoadDublin [place] [id number] AST [Catalytic activity/Vol] 18 U/L Normal 0-40 [facility]; [facility] Work Phone: Comment on above: PATIENT WAS FASTINGP ERFORMED BY: [facility] Pgzfpw4255 [address] RoadDublin [place] [id number] Bilirubin [Mass/Vol] 0.6 mg/dL Normal 0.0-1.2 [facility] Work Phone: Comment on above: PATIENT WAS FASTINGP ERFORMED BY: [facility] Cjcmtl2814 [address] RoadDublin [place] [id number] Calcium [Mass/Vol] 9.7 mg/dL Normal 8.9-10.4 [facility] Work Phone: Comment on above: PATIENT WAS FASTINGP ERFORMED BY: [facility] Zsqzpt9358 [address] RoadDublin [place] [id number] Chloride [Moles/Vol] 101 mmol/L Normal 96-106 [facility] Work Phone: Comment on above: PATIENT WAS FASTINGP ERFORMED BY: [facility] Btvyjd0184 [address] RoadDublin [place] [id number] CO2 [Moles/Vol] 24 mmol/L Normal 20-29 [facility] Internal Medicine Work Phone: Comment on above: PATIENT WAS FASTINGP ERFORMED BY: [facility] Ndjwoe2626 [address] RoadDublin [place] [id number] Creatinine [Mass/Vol] 0.85 mg/dL Normal 0.76-1.27 [facility] Work Phone: Comment on above: PATIENT WAS FASTINGP ERFORMED BY: [facility] Mamebq8489 [address] RoadDublin [place] [id number] Globulin (S) [Mass/Vol] 2.6 g/dL Normal 1.5-4.5 [facility] Work Phone: Comment on above: PATIENT WAS FASTINGP ERFORMED BY: [facility] Kgrdab8207 [address] RoadDublin [place] [id number] Glucose [Mass/Vol] 88 mg/dL Normal 65-99 [facility] Work Phone: Comment on above: PATIENT WAS FASTINGP ERFORMED BY: [facility] Jpsvjo7843 [address] RoadDublin [place] [id number] Potassium [Moles/Vol] 4.6 mmol/L Normal 3.5-5.2 [facility] Work Phone: Comment on above: PATIENT WAS FASTINGP ERFORMED BY: TREVOR [facility] Cjtwvh5740 [address] RoadDublin [place] [id number] Protein [Mass/Vol] 7.1 g/dL Normal 6.0-8.5 [facility] Work Phone: Comment on above: PATIENT WAS FASTINGP ERFORMED BY: TREVOR [facility] Qbesua2040 [address] RoadDublin [place] [id number] Sodium [Moles/Vol] 139 mmol/L Normal 134-144 [facility] Work Phone: Comment on above: PATIENT WAS FASTINGP ERFORMED BY: TREVOR [facility] Uamebd5307 [address] RoadDublin [place] [id number] Urea nitrogen [Mass/Vol] 16 mg/dL Normal 5-18 [facility] Work Phone: Comment on above: PATIENT WAS FASTINGP ERFORMED BY: TREVOR [facility] Qikass4533 [address] RoadDublin [place] [id number] Urea nitrogen/Creatini ne [Mass ratio] 19 mg/mg Normal 10-22 [facility] Work Phone: Comment on above: PATIENT WAS FASTINGP ERFORMED BY: TREVOR [facility] Lqiahx4591 [address] RoadDublin [place] [id number] TSH ([id number])Ordered By: [employer] m Marketing Professor on 10-22-2020 TSH Qn 1.140 {uIU/mL} Normal 0.450-4.500 [facility] Internal Medicine Work Phone: Comment on above: PATIENT WAS FASTINGP ERFORMED BY: [facility] Bzbcve1862 [address] RoadDublin [place] [id number] CBC WITH MANUAL DIFF ([id number]) Ordered By: [employer] Crossing Guard on 01-21-2019 Basophils (Bld) [#/Vol] 0.0 {x10E3/uL} Normal 0.0-0.3 [facility] Work Phone: Comment on above: PATIENT NOT FASTINGP ERFORMED BY: TRVEOR [facility] Ofwedg6812 [address] RoadDublin [place] [id number] Basophils (Bld) [#/Vol] 0.0 10*3/uL Normal 0.0-0.3 [facility]; [facility] Work Phone: Comment on above: PATIENT NOT FASTINGP ERFORMED BY: CB [facility] Xvunwp6339 [address] RoadDublin [place] [id number] Basophils/100 WBC (Bld) 1 % Normal [facility] Work Phone: Comment on above: PATIENT NOT FASTINGP ERFORMED BY: CB [facility] Avxuap8254 [address] RoadDublin [place] [id number] Eosinophils (Bld) [#/Vol] 0.4 {x10E3/uL} Normal 0.0-0.4 [facility] Work Phone: Comment on above: PATIENT NOT FASTINGP ERFORMED BY: CB [facility] Kxsklo6206 [address] RoadDublin [place] [id number] Eosinophils (Bld) [#/Vol] 0.4 10*3/uL Normal 0.0-0.4 [facility]; [facility] Work Phone: Comment on above: PATIENT NOT FASTINGP ERFORMED BY: [facility] Xhclda7742 [address] RoadDublin [place] [id number] Eosinophils/100 WBC (Bld) 5 % Normal [facility] Work Phone: Comment on above: PATIENT NOT FASTINGP ERFORMED BY: [facility] Vlnjxz8129 [address] RoadDuin [place] [id number] Erythrocyte distribution width (RBC) [Ratio] 13.3 % Normal 12.3-15.4 [facility] Work Phone: Comment on above: PATIENT NOT FASTINGP ERFORMED BY: CB [facility] Lcljbf7783 [address] RoadDublin [place] [id number] Hematocrit (Bld) [Volume fraction] 40.9 % Normal 37.5-51.0 [facility] Work Phone: Comment on above: PATIENT NOT FASTINGP ERFORMED BY: CB [facility] Cjzzxd4637 [address] RoadDublin [place] [id number] Hemoglobin (Bld) [Mass/Vol] 14.2 g/dL Normal 12.6-17.7 [facility] Work Phone: Comment on above: PATIENT NOT FASTINGP ERFORMED BY: TREVOR [facility] Rofakk9814 [address] RoadDublin [place] [id number] Immature granulocytes (Bld) [#/Vol] 0.0 {x10E3/uL} Normal 0.0-0.1 [facility] Work Phone: Comment on above: PATIENT NOT FASTINGP ERFORMED BY: CB [facility] Eksike4184 [address] RoadDublin [place] [id number] Immature granulocytes (Bld) [#/Vol] 0.0 10*3/uL Normal 0.0-0.1 [facility]; [facility] Work Phone: Comment on above: PATIENT NOT FASTINGP ERFORMED BY: CB [facility] Siahgv7355 [address] RoadDublin [place] [id number] Immature granulocytes/100 WBC (Bld) 0 % Normal [facility] Work Phone: Comment on above: PATIENT NOT FASTINGP ERFORMED BY: CB [facility] Iyviec4371 [address] RoadDublin [place] [id number] Lymphocytes (Bld) [#/Vol] 2.7 {x10E3/uL} Normal 0.7-3.1 [facility] Work Phone: Comment on above: PATIENT NOT FASTINGP ERFORMED BY: CB [facility] Zokbjv6540 [address]Dublin [place] [id number] Lymphocytes (Bld) [#/Vol] 2.7 10*3/uL Normal 0.7-3.1 [facility]; [facility] Work Phone: Comment on above: PATIENT NOT FASTINGP ERFORMED BY: CB [facility] Pyfepe5920 [address] RoadDublin [place] [id number] Lymphocytes/100 WBC (Bld) 37 % Normal [facility] Work Phone: Comment on above: PATIENT NOT FASTINGP ERFORMED BY: CB [facility] Callum4153 [address] RoadDublin [place] [id number] MCH (RBC) [Entitic mass] 28.9 pg Normal 26.6-33.0 [facility] Work Phone: Comment on above: PATIENT NOT FASTINGP ERFORMED BY: TREVOR LabComanjit DixonNvislk2817 [address] RoadDublin [place] [id number] MCHC (RBC) [Mass/Vol] 34.7 g/dL Normal 31.5-35.7 [facility] Work Phone: Comment on above: PATIENT NOT FASTINGP ERFORMED BY: CB [facility] Tsiggo4472 [address] RoadDublin [place] [id number] MCV (RBC) [Entitic vol] 83 fL Normal 79-97 [facility] Work Phone: Comment on above: PATIENT NOT FASTINGP ERFORMED BY: TREVOR LabComanjit BorgesWdtift9046 [address] RoadDublin [place] [id number] Monocytes (Bld) [#/Vol] 0.8 {x10E3/uL} Normal 0.1-0.9 [facility] Work Phone: Comment on above: PATIENT NOT FASTINGP ERFORMED BY: CB [facility] Fieqdc5008 [address] RoadDublin [place] [id number] Monocytes (Bld) [#/Vol] 0.8 10*3/uL Normal 0.1-0.9 [facility]; [facility] Work Phone: Comment on above: PATIENT NOT FASTINGP ERFORMED BY: [facility] Avfvpn1791 [address] RoadDublin [place] [id number] Monocytes/100 WBC (Bld) 11 % Normal [facility] Work Phone: Comment on above: PATIENT NOT FASTINGP ERFORMED BY: CB [facility] Ekcpgt2390 [address]Dublin [place] [id number] Neutrophils (Bld) [#/Vol] 3.5 {x10E3/uL} Normal 1.4-7.0 [facility] Work Phone: Comment on above: PATIENT NOT FASTINGP ERFORMED BY: CB [facility] Lezuri8716 [address] RoadDublin [place] [id number] Neutrophils (Bld) [#/Vol] 3.5 10*3/uL Normal 1.4-7.0 [facility]; [facility] Work Phone: Comment on above: PATIENT NOT FASTINGP ERFORMED BY: TREVOR LabComanjit Ranvrl0369 [address] RoadDublin [place] [id number] Neutrophils/100 WBC (Bld) 46 % Normal [facility] Work Phone: Comment on above: PATIENT NOT FASTINGP ERFORMED BY: CB [facility] Vaxuwu7553 [address] RoadDublin [place] [id number] Platelets (Bld) [#/Vol] 309 {x10E3/uL} Normal 150-379 [facility] Work Phone: Comment on above: PATIENT NOT FASTINGP ERFORMED BY: CB [facility] Ubzgqj9206 [address]Dublin [place] [id number] Platelets (Bld) [#/Vol] 309 10*3/uL Normal 150-379 [facility]; [facility] Work Phone: Comment on above: PATIENT NOT FASTINGP ERFORMED BY: CB [facility] Ywiseo3371 [address] RoadDublin [place] [id number] RBC (Bld) [#/Vol] 4.92 {x10E6/uL} Normal 4.14-5.80 [facility] Internal Medicine Work Phone: Comment on above: PATIENT NOT FASTINGP ERFORMED BY: CB [facility] Mgutkw9634 [address]Dublin [place] [id number] RBC (Bld) [#/Vol] 4.92 10*6/uL Normal 4.14-5.80 [facility] Internal Medicine; [facility] Work Phone: Comment on above: PATIENT NOT FASTINGP ERFORMED BY: CB [facility] Qzfssj3923 [address] RoadDublin [place] [id number] WBC (Bld) [#/Vol] 7.4 {x10E3/uL} Normal 3.4-10.8 [facility] Internal Medicine Work Phone: Comment on above: PATIENT NOT FASTINGP ERFORMED BY: CB [facility] Lsfipq8644 [address]Dublin [place] [id number] WBC (Bld) [#/Vol] 7.4 10*3/uL Normal 3.4-10.8 [facility] Internal Medicine; [facility] Work Phone: Comment on above: PATIENT NOT FASTINGP ERFORMED BY: TREVOR [facility] Pbkjjp5771 [address] RoadDublin [place] [id number] Metabolic Panel, Comprehensi ve ([id number])Ordered By: [employer] Crossing Guard on 01-21-2019 Albumin [Mass/Vol] 4.4 g/dL Normal 3.5-5.5 [facility] Work Phone: Comment on above: PATIENT NOT FASTINGP ERFORMED BY: TREVOR Dixon6370 [address]Dublin [place] [id number] Albumin/Globulin [Mass ratio] 1.8 {ratio} Normal 1.2-2.2 [facility] Work Phone: Comment on above: PATIENT NOT FASTINGP ERFORMED BY: TREVOR LabAri BorgesCdjavh3166 [address] RoadDublin [place] [id number] ALP [Catalytic activity/Vol] 224 [iU]/L Normal 107-340 [facility] Work Phone: Comment on above: PATIENT NOT FASTINGP ERFORMED BY: TREVOR LabAri BorgesBwklbj8581 Quiñonez RoadDublin [place] [id number] ALP [Catalytic activity/Vol] 224 U/L Normal 107-340 [facility]; [facility] Work Phone: Comment on above: PATIENT NOT FASTINGP ERFORMED BY: TREVOR [facility] [id number] [address] RoadDublin [place] [id number] ALT [Catalytic activity/Vol] 12 [iU]/L Normal 0-30 [facility] Work Phone: Comment on above: PATIENT NOT FASTINGP ERFORMED BY: TREVOR [facility] Doimpu8434 [address] RoadDublin [place] [id number] ALT [Catalytic activity/Vol] 12 U/L Normal 0-30 [facility]; [facility] Work Phone: Comment on above: PATIENT NOT FASTINGP ERFORMED BY: TREVOR [facility] Mvpxvw0232 [address] RoadDublin [place] [id number] AST [Catalytic activity/Vol] 16 [iU]/L Normal 0-40 [facility] Work Phone: Comment on above: PATIENT NOT FASTINGP ERFORMED BY: TREVOR [facility] Fvazvt3938 [address] RoadDublin [place] [id number] AST [Catalytic activity/Vol] 16 U/L Normal 0-40 [facility]; [facility] Work Phone: Comment on above: PATIENT NOT FASTINGP ERFORMED BY: TREVOR [facility] [id number] [address] RoadDublin [place] [id number] Bilirubin [Mass/Vol] 0.2 mg/dL Normal 0.0-1.2 [facility] Work Phone: Comment on above: PATIENT NOT FASTINGP ERFORMED BY: TREVOR [facility] Luyytr8874 [address] RoadDublin [place] [id number] Calcium [Mass/Vol] 9.5 mg/dL Normal 8.9-10.4 [facility] Work Phone: Comment on above: PATIENT NOT FASTINGP ERFORMED BY: TREVOR [facility] Xxtesj5914 [address] RoadDublin [place] [id number] Chloride [Moles/Vol] 103 mmol/L Normal 96-106 [facility] Work Phone: Comment on above: PATIENT NOT FASTINGP ERFORMED BY: CB [facility] Ifyass4281 [address] RoadDublin [place] [id number] CO2 [Moles/Vol] 22 mmol/L Normal 20-29 [facility] Work Phone: Comment on above: PATIENT NOT FASTINGP ERFORMED BY: CB [facility] Cyjgks6303 [address] RoadDublin [place] [id number] Creatinine [Mass/Vol] 0.80 mg/dL Normal 0.49-0.90 [facility] Work Phone: Comment on above: PATIENT NOT FASTINGP ERFORMED BY: CB [facility] Vsgxsy1042 [address] RoadDublin [place] [id number] Globulin (S) [Mass/Vol] 2.5 g/dL Normal 1.5-4.5 [facility] Work Phone: Comment on above: PATIENT NOT FASTINGP ERFORMED BY: TREVOR [facility] Jqjpsb0786 Qu[address] Roadblin [place] [id number] Glucose [Mass/Vol] 98 mg/dL Normal 65-99 [facility] Work Phone: Comment on above: PATIENT NOT FASTINGP ERFORMED BY: TREVOR [facility] Cloyde[address] [facility] [place] [id number] Potassium [Moles/Vol] 4.6 mmol/L Normal 3.5-5.2 [facility] Work Phone: Comment on above: PATIENT NOT FASTINGP ERFORMED BY: TREVOR [facility] [id number] [facility] [place] [id number] Protein [Mass/Vol] 6.9 g/dL Normal 6.0-8.5 [facility] Work Phone: Comment on above: PATIENT NOT FASTINGP ERFORMED BY: TREVOR [facility] Ygvnmr[address]754 [address] [facility] [place] [id number] Sodium [Moles/Vol] 143 mmol/L Normal 134-144 [facility] Work Phone: Comment on above: PATIENT NOT FASTINGP ERFORMED BY: TREVOR [facility] [id number] [address] [facility] [id number] Urea nitrogen [Mass/Vol] 10 mg/dL Normal 5-18 [facility] Work Phone: Comment on above: PATIENT NOT FASTINGP ERFORMED BY: [facility] Pknymv8391 [address] [facility]in [place] [id number] Urea nitrogen/Creatini ne [Mass ratio] 13 mg/mg Normal 10-22 [facility] Work Phone: Comment on above: PATIENT NOT FASTINGP ERFORMED BY: TREVOR [facility] [id number] [facility] [place] [id number] T4, FREE (THYROXINE) ([id number]) Ordered By: Construction Site Crossing Guard on 01-21-2019 Free T4 [Mass/Vol] 0.87 ng/dL Abnormal 0.93-1.60 [facility] Work Phone: Comment on above: PATIENT NOT FASTINGP ERFORMED BY: Sanrad [facility] [id number] [address] Qualtricsblin [place] [id number] TSH ([id number])Ordered By: Syste m Marketing Professor on 01-21-2019 TSH Qn 5.810 {uIU/mL} Abnormal 0.450-4.500 Comprehen [facility] Internal Medicine Work Phone: Comment on above: PATIENT NOT FASTINGP ERFORMED BY: Sanrad [facility] Pateqc[address] Qualtricsblin [place] [id number] Valproic Acid ([id number])Ordered By: Construction Site Crossing Guard on 01-21-2019 Valproate [Mass/Vol] 47 ug/mL Abnormal 50-100 [facility] Work Phone: Comment on above: Detection Limit = 4 <4 indicates None Detected . Toxicity may occur at levels of 100-500. Measurements of free unbound valproic acid may improve the assess- ment of clinical response. PATIENT NOT FASTINGP ERFORMED BY: Sanrad [facility] [id number] D8A Groupin [place] [id number] BETSY CULTURE-OTHER ([id number])on 05-28-2018 Bacteria identified Respiratory culture Nom (Unsp spec) RRF Normal [facility] Work Phone: Comment on above: Routine respiratory nirali PERFORMED BY: Arpeggi Vdupjw1310 D8A GroupFormerly [facility] [id number] Information: SRC:TH Bacteria identified Respiratory culture Nom (Unsp spec) Final report Normal [facility] Work Phone: Comment on above: PERFORMED BY: Arpeggi [id number] D8A GroupFormerly [facility] [id number] Information: SRC:TH Vital Signs Date Time Vital Sign Value Performing Clinician Facility 09-20-2023 11:58-0400 Body temperature 99 [degF] Leonie Presley DO Work Phone: [facility]; [facility] Work Phone: Comment on above: Method: Oral 09-20-2023 11:58-0400 Diastolic blood pressure 80 mm[Hg] Leonie Palacioson DO Work Phone: [facility]; [facility] Work Phone: Comment on above: Patient Position: Sitting 09-20-2023 11:58-0400 Heart rate 80 /min Leonie Presley DO Work Phone: [facility]; [facility] Work Phone: Comment on above: Pattern: Regular 09-20-2023 11:58-0400 SaO2% (BldA) [Mass fraction] 96 % Leonie Presley DO Work Phone: [facility]; [facility] Work Phone: Comment on above: Room air 09-20-2023 11:58-0400 Systolic blood pressure 120 mm[Hg] Leonie Presley DO Work Phone: [facility]; [facility] Work Phone: Comment on above: Patient Position: Sitting 01-21-2023 16:00-0500 Body height 187.96 cm [facility]; [facility] Work Phone: 01-21-2023 16:00-0500 Body mass index (BMI) [Ratio] 24.14 kg/m2 [facility]; [facility] Work Phone: 01-21-2023 16:00-0500 Body surface area Derived from formula 2.12 m2 [facility]; [facility] Work Phone: 01-21-2023 16:00-0500 Body temperature 97.8 [degF] [facility]; [facility] Work Phone: 01-21-2023 16:00-0500 Body weight 85.28 kg [facility]; [facility] Work Phone: 01-21-2023 16:00-0500 Diastolic blood pressure 64 mm[Hg] [facility]; [facility] Work Phone: Comment on above: Patient Position: Sitting; Cuff Location : Left Arm; Cuff Size: Standard 01-21-2023 16:00-0500 Heart rate 69 /min Abdoul Medina [facility]; [facility] Work Phone: Comment on above: Pattern: Regular 01-21-2023 16:00-0500 Respiratory rate 16 /min Abdoul Medina [facility]; [facility] Work Phone: Comment on above: Pattern: Unlabored 01-21-2023 16:00-0500 SaO2% (BldA) [Mass fraction] 96 % Abdoul [facility]; [facility] Work Phone: Comment on above: Room air 01-21-2023 16:00-0500 Systolic blood pressure 120 mm[Hg] [facility]oul [facility]; [facility] Work Phone: Comment on above: Patient Position: Sitting; Cuff Location : Left Arm; Cuff Size: Standard 10-01-2022 14:44-0400 Body height 187.96 cm Leonie Sakina DO Work Phone: [facility]; [facility] Work Phone: 10-01-2022 14:44-0400 Body mass index (BMI) [Ratio] 23.11 kg/m2 Leonie Sakina DO Work Phone: [facility]; [facility] Work Phone: 10-01-2022 14:44-0400 Body surface area Derived from formula 2.08 m2 Leonie Sakina DO Work Phone: [facility]; [facility] Work Phone: 10-01-2022 14:44-0400 Body temperature 96.9 [degF] Leonie Sakina DO Work Phone: [facility]; [facility] Work Phone: Comment on above: Method: Oral 10-01-2022 14:44-0400 Body weight 81.65 kg Leonie Sakina DO Work Phone: [facility]; [facility] Work Phone: 10-01-2022 14:44-0400 Diastolic blood pressure 80 mm[Hg] Leonie Sakina DO Work Phone: [facility]; [facility] Work Phone: Comment on above: Patient Position: Sitting; Cuff Location : Left Arm; Cuff Size: Standard 10-01-2022 14:44-0400 Heart rate 83 /min Leonie Sakina DO Work Phone: [facility]; [facility] Work Phone: Comment on above: Pattern: Regular 10-01-2022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 [address] [place] [address] OFFICE VISIT Date of Service: 11/15/19 MR#: [id number] Acct: [id number] Name: ISIDORO CHRISTY Rep #: [id number] : 2005 Provider: Rachel Styles DO Age/Sex: 14/M Location: [facility] [place] Status: Signed Intake Vital Signs11/15/19 Height 6 ft 1 in 11/15/19 Weight: 170 lb Intake Visit Reasons: ankle sprain Accompanied by: Father Is patient in pain?: Yes Pain scale (1-10): 7 Allergies No Known Allergies Allergy (Unverified 11/15/19 15:42) Medications atomoxetine 25 mg capsule PO 11/15/19 [History Confirmed 11/15/19] buspirone 15 mg tablet mg PO 11/15/19 [History Confirmed 11/15/19] lisdexamfetamine 30 mg capsule mg PO 11/15/19 [History Confirmed 11/15/19] HPI ankle sprain: Details: Parts of this documentation were recorded by a scribe, this documentation accurately reflects the service provided and the decisions made by , Rachel Styles DO 11/15/19 4804. ISIDORO CHRISTY is a 14 year old M NEW patient here today for left ankle injury. DOI: 11/14/19. Patient was playing basketball and he jumped up and landed on his ankle in an eversion position and he had instant pain. People around him at the time of the injury heard his ankle pop. Denies numbness, tingling or other associated symptoms. Patient has take Aleve and iced since his injury. Patient states he has most of his pain with dorsiflexion. He has swelling over his ankle. ROS Musc Reports joint pain, Reports joint swelling, Reports limited joint movement, Denies numbness, Denies radiating pain into limb, Reports stiffness, Denies tingling Neuro No numbness, No tingling Ortho Exam Left Foot/Ankle Skin: Yes Soft Tissue Swelling Exam: Yes Soft tissue swelling, TTP ATFL and TTP Deltoid Ligament; no eversion normal or inversion normal ROM: Yes pain with ROM Anterior Drawer: 1 Tests: Watson Test: 1, Squeeze Test: 1 Sensation: Deep Peroneal Nerve: I, Superficial Peroneal Nerve: I, Tibial Nerve: I, Sural Nerve: I ANKLE: no proximal fibula pain, Assessment AND Plan Problems 1. Salter-Sanchez type I physeal fracture of distal end of left fibula, initial encounter S89.312A Plan X-rays were reviewed. Explained that he has a Salter-Sanchez fracture at the growth plate of the fibula. His treatment options are boot for a month, he should be nwb into ttwb for 2wks with crutches/wheeled walker then two weeks fwb. He can remove for rom, icing and bathing. Follow up in a month or sooner if pain, swelling, numbness or associated symptoms, or concerns develop. All questions answered. Patient in agreement of plan. Coding Level of Care Code 24196 Diagnoses Salter-Sanchez type I physeal fracture of distal end of left fibula, initial encounter S89.312A Encounter type: initial encounter 12/13/19 1306 <Electronically signed by Rachel Styles DO> Date Rachel Styles DO Cosigner Signature: Date (if applicable) CC: MD Ghislaine Blank Start: 11-14-2019 End: 11-14-2019 Ankle min 3 Views Comments: See Note; NOTES: [facility] [address] [place] [address] Ankle min 3 Views MR#: [id number] Acct: [id number] Name: ISIDORO CHRISTY Rep #: [id number] : 2005 M 14 From: David Hager MD PCP: Radha Hess MD Status: REG CLI Study: Ankle min 3 Views Date of Exam: 11/14/19 Exam# [id number] Ordering Dr: Ghislaine Christy MD STUDY: X-RAY - LEFT ANKLE REASON FOR EXAM: Male, 14 years old. Trauma TECHNIQUE: 3 view(s) of the ankle. COMPARISON: None. FINDINGS: There is no evidence of fracture or dislocation. There are no significant degenerative changes. There are no radiodense foreign bodies. RAD/Ankle min 3 Views IMPRESSION: No fracture or dislocation. Electronically Signed: David Hager, at 19:26 EST Tel , Service support , CC: Ghislaine Christy MD; Rahda Hess MD Telecommunications Engineer: Signed Ghislaine Christy Work Phone: Plan of Treatment Date Care Activity Detail Author Start: 02-06-2023 Assay of ethanol Ethanol, Urine (820 55) [facility] Work Phone: Comment on above: standing order prn Start: 01-21-2023 Procedure Education Eprescribe d prescriptions (G8553) [facility] Work Phone: Start: 01-21-2023 Provider Instruction s for Treatment Continue Current Prescription(s) [facility] Work Phone: Start: 10-01-2022 Provider Instruction s for Treatment Follow up in 3 weeks [facility]; [facility] Work Phone: Start: 02-07-2022 Drug screening cannabinoids natural CANNABINOIDS NATURAL (47826) [facility]; [facility] Work Phone: Comment on above: need urine THC quant #[id number] Start: 10-22-2020 Assay of iron Iron (74437) [facility] Work Phone: Start: 10-22-2020 Iron [Mass/Vol] Iron (66960) [facility] Work Phone: Start: 01-21-2019 Blood count manual c ell count each CBC WITH MANUAL DIFF (49407) [facility] Work Phone: Start: 01-21-2019 Comprehensive metabo lic panel Metabolic Panel, Comprehensive (37823) [facility] Work Phone: Start: 01-21-2019 T4 free mass conc T4, FREE (TH YROXINE) (77996) [facility] Work Phone: Start: 01-21-2019 Thyrotropin Qn TSH (19735) [facility] Work Phone: Start: 01-21-2019 Protein mass conc Valproic Acid (801 64) [facility] Work Phone: [facility] Work Phone: [facility] Work Phone: [facility] Work Phone: [facility] Work Phone: Payers Date Payer Category Payer Self-pay 2020 Unknown [id number] 2017 Private Health Insurance [id number] 2004 Unknown [id number] [id number] [id number] Unknown Unknown [id number] Unknown [id number] 2.16.8 [id number] Unknown [id number] 2.16.8 [id number] Unknown [id number] 2.16.8 [id number] Unknown [id number] 2.16.8 [id number] Clinical Notes 01-09-2021 to 12-11-2021 Note Date & Type Note Facility 12-11-2021 Note HNO ID: [id number] Author: Zia Ann MD Service: ? Author Type: Physician Type: Progress Notes Filed: 12/11/2021 12:06 PM Note Text: CHILD AND ADOLESCENT PSYCHIATRY FOLLOW-UP VISIT Type of visit: virtual visit Patient was present for this visit. Accompanied by: biologic mother Total time for encounter: 30 minutes Confidentiality limitations with virtual visits were reviewed with the patient and guardian, who have consented and accepted the risk verbally prior to proceeding with this encounter. ASSESSMENT AND PLAN Depression is better controlled with bupropion, and SR version has fewer side effects in the evening than XL version, so will continue with bupropion SR 150mg once daily in the AM Anxiety seems well controlled with buspirone at current lower dose, but there is substance use that may be self medicating Agreed to continue current rx Engaged in motivational interviewing around harm reduction for substance use, starting with most concerning (kratom, delta thc)- pt is contemplative and moving towards planning stage of change Excoriation likely r/t anxiety and boredom- will trial NAC given prior positive results Problem List Items Addressed This Visit Dermatology Excoriation (skin-picking) disorder Overview N- Acetyl-L cysteine (NAC)- 600 mg capsules Take as follows: Week 1: 1 cap daily Week 2: 1 cap twice daily Week 3: 2 caps in AM, 1 cap at night Week 4: 2 caps twice daily You must do this for 3 months to see results. Psychiatry Generalized anxiety disorder - Primary Overview Continue buspirone 7.5mg morning and 7.5mg lunch ADHD Overview Continue Intuniv 3mg Continue Strattera 18mg twice daily Substance use disorder Overview Work on harm reduction strategies Oppositional defiant disorder Overview Consider counseling. Major depressive disorder Overview Continue Wellbutrin SR 150mg daily Diagnoses: (F41.1) Generalized anxiety disorder (primary encounter diagnosis) (F90.2) Attention deficit hyperactivity disorder (ADHD), combined type (F32.1) Current moderate episode of major depressive disorder without prior episode (HCC) (F42.4) Excoriation (skin-picking) disorder (F91.3) Oppositional defiant disorder (F19.90) Substance use disorder Orders: Orders Placed This Encounter atomoxetine (STRATTERA) 18 mg capsule Sig: Take 1 capsule by mouth twice daily. Dispense: 180 capsule Refill: 1 busPIRone (BUSPAR) 15 mg tablet Sig: Take 0.5 tablets by mouth twice daily. Follow-up: - RTC 3 mos - Family was asked to call for an earlier visit if needed. SUBJECTIVE AM: atomox 18mg, bus 7.5mg, well SR 150mg Noon: atomox 18, bus 7.5 HS: guanf ER 3mg Since switching bupropion from XL to SR, he is sleeping/eating better and mood is better Atomoxetine helps with concentration and staying on task- some persistent sx but higher doses of atomoxetine or augmenting with lisdex have caused side effects- some days his self discipline gets in the way Using nicotine and delta-thc regularly, drinks etoh sometimes, used kratom last month He is taking a break from counseling as it has not seemed terribly useful He is frequently picking at skin- he previously used NAC with moderate response Anxiety is well controlled Sleeping well Good appetite Less SI but passive SI remains, without plan or intent to act No self harm or HI Stressors and/or changes to social history: No Medication reactions: Yes, as above Treatment compliance is good. The patient is not seeing a therapist. Any collateral information collected outside this interview? No Are there any new updates to patient's medical history? No Review of Systems All other systems reviewed and are negative. HISTORY Medications Outpatient medications: Current Outpatient Medications on File Prior to Visit Medication Sig - buPROPion SR (ZYBAN SR; WELLBUTRIN SR) 150 mg 12 hr tablet Take 1 tablet by mouth once daily. - atomoxetine (STRATTERA) 18 mg capsule Take 1 capsule by mouth twice daily. - busPIRone (BUSPAR) 15 mg tablet Take 1 tablet by mouth twice daily. - guanFACINE (INTUNIV ER) 3 mg Tb24 Take 1 tablet by mouth once daily. - hydrOXYzine HCl (ATARAX) 25 mg tablet Take 1 tablet by mouth twice daily as needed for anxiety. No current facility-administered medications on file prior to visit. ALLERGIES No Known Allergies Medical CURRENT PCP: No primary care provider on file. ACTIVE PROBLEM LIST Generalized Anxiety Disorder Adhd Substance Use Disorder Oppositional Defiant Disorder Major Depressive Disorder Excoriation (Skin-Picking) Disorder PREVIOUS SURGERIES: History reviewed. No pertinent surgical history. Family History reviewed. No pertinent family history. OBJECTIVE There were no vitals filed for this visit. - Vital signs not obtained as this was a virtual visit Last 3 Encounter Wt Readings: Date: Wt: 12/28/2019 75.3 kg (more content not included)... [facility] 09-04-2021 Note HNO ID: [id number] Author: Zia Ann MD Service: ? Author Type: Physician Type: Progress Notes Filed: 09/04/2021 12:02 PM Note Text: CHILD AND ADOLESCENT PSYCHIATRY FOLLOW-UP VISIT Type of visit: phone - zoom did not link pt and provider Patient was present for this visit. Accompanied by: biologic mother Total time for encounter: 30 minutes Confidentiality limitations with virtual visits were reviewed with the patient and guardian, who have consented and accepted the risk verbally prior to proceeding with this encounter. ASSESSMENT AND PLAN Depression improved in first few days of starting bupropion but sx have since recurred- discussed giving it at least another week before considering titrating- either using bupropion SR 50mg increments or directly to 300mg XL Will continue atomoxetine + guanfacine ER for ADHD OK to use hydroxyzine PRN Will continue buspirone for now but he often forget the mid-day dose, full dose in AM was too much Given insomnia and low appetite as he stops THC, discussed that he may benefit from mirtaz in future- this may be able to replace buspirone as well Continue in CD counseling Problem List Items Addressed This Visit Psychiatry Generalized anxiety disorder Overview Continue buspirone- try 7.5mg morning, 7.5mg lunch (if remembers), and 15mg at bedtime ADHD - Primary Overview Continue Intuniv 3mg Continue Strattera 40mg daily Continue in counseling Substance use disorder Overview Continue counseling. Oppositional defiant disorder Overview Continue in counseling. Major depressive disorder Overview Continue Wellbutrin XL 150mg daily Diagnoses: (F90.2) Attention deficit hyperactivity disorder (ADHD), combined type (primary encounter diagnosis) (F41.1) Generalized anxiety disorder (F32.1) Current moderate episode of major depressive disorder without prior episode (HCC) (F91.3) Oppositional defiant disorder (F19.90) Substance use disorder Orders: No orders of the defined types were placed in this encounter. Follow-up: - RTC 3 mos - Family was asked to call for an earlier visit if needed. SUBJECTIVE He started bupropion XL 1.5 weeks ago He initially did really well, felt happier, seemed less withdrawn, less anhedonia Effects wore off after a few days, and now he notices the depression has returned He is also tapering off of THC and nicotine Low appetite He has a counselor [facility] Taking buspirone 7.5mg qam + 15mg qhs - doesn't like the mid-day 7.5mg, but he also struggles most in the late afternoon Anxiety is overall well managed Doing well in school, no concerns from teachers - taking atomoxetine + guanfacine ER daily - focusing fairly well during the day + middle insomnia when he does not use marijuana As mood has worsened, passive SI has returned, but he denies intent to act or desire to - he is communicating with parents about safety Using 25mg hydroxyzine prn Stressors and/or changes to social history: Yes, MGM last month Medication reactions: Yes, as above Treatment compliance is mostly good. The patient is seeing a therapist. Any collateral information collected outside this interview? Yes: p/c with mom Are there any new updates to patient's medical history? No Review of Systems All other systems reviewed and are negative. HISTORY Medications Outpatient medications: Current Outpatient Medications on File Prior to Visit Medication Sig - buPROPion XL (WELLBUTRIN XL) 150 mg 24 hr tablet Take 1 tablet by mouth once daily. - guanFACINE (INTUNIV ER) 3 mg Tb24 Take 1 tablet by mouth once daily. - busPIRone (BUSPAR) 15 mg tablet Take 1 tablet by mouth twice daily. - atomoxetine (STRATTERA) 40 mg capsule Take 1 capsule by mouth once daily. No current facility-administered medications on file prior to visit. ALLERGIES No Known Allergies Medical CURRENT PCP: No primary care provider on file. ACTIVE PROBLEM LIST Generalized Anxiety Disorder Adhd Substance Use Disorder Oppositional Defiant Disorder Major Depressive Disorder PREVIOUS SURGERIES: History reviewed. No pertinent surgical history. Family History reviewed. No pertinent family history. OBJECTIVE There were no vitals filed for this visit. - Vital signs not obtained as this was a virtual visit Last 3 Encounter Wt Readings: Date: Wt: 12/28/2019 75.3 kg (166 lb) (88 %, Z= 1.19)* 09/21/2019 76.7 kg (169 lb) (91 %, Z= 1.36)* 07/20/2019 77.1 kg (170 lb) (93 %, Z= 1.45)* Last 3 Encounter Ht Readings: Date: Ht: 03/09/2019 177.8 cm (5' 10") (85 %, Z= 1.05)* 02/09/2019 177 cm (5' 9.69") (84 %, Z= 0.99)* There is no height or weight on file to calculate BMI. PHYSICAL EXAM N/a: phone call Patient Data Patient Health Questionnaire - Pediatric (PHQ-A) PHQ-A Scores 09/04/2021 PHQ-A Total Score 12 (0-4) minimal depression, (5-9) mild depression, (10-14) moderate (more content not included)... [facility] 07-10-2021 Note HNO ID: [id number] Author: Zia Ann MD Service: ? Author Type: Physician Type: Progress Notes Filed: 07/10/2021 10:23 AM Note Text: CHILD AND ADOLESCENT PSYCHIATRY FOLLOW-UP VISIT Type of visit: virtual visit Patient was present for this visit. Accompanied by: biologic father Total time for encounter: 35 minutes Confidentiality limitations with virtual visits were reviewed with the patient and guardian, who have consented and accepted the risk verbally prior to proceeding with this encounter. ASSESSMENT AND PLAN Recent admission to [facility] for SI and substance use Pt in action stage of change, in CD counseling, using nicotine patch- engaged in ID re motivations to quit Will avoid stimulant at this time and continue other rx as tx needs to focus on therapy, CD, and day structure Problem List Items Addressed This Visit Psychiatry Generalized anxiety disorder - Primary Overview Continue buspirone- try 7.5mg morning, 7.5mg lunch, and 15mg at bedtime ADHD Overview Continue Intuniv 3mg Continue Strattera 40mg daily Continue in counseling Substance use disorder Overview Continue counseling. Oppositional defiant disorder Overview Continue in counseling. Diagnoses: (F41.1) Generalized anxiety disorder (primary encounter diagnosis) (F90.2) Attention deficit hyperactivity disorder (ADHD), combined type (F19.90) Substance use disorder (F91.3) Oppositional defiant disorder Orders: Orders Placed This Encounter guanFACINE (INTUNIV ER) 3 mg Tb24 Sig: Take 1 tablet by mouth once daily. Dispense: 90 tablet Refill: 3 busPIRone (BUSPAR) 15 mg tablet Sig: Take 1 tablet by mouth twice daily. Dispense: 180 tablet Refill: 3 atomoxetine (STRATTERA) 40 mg capsule Sig: Take 1 capsule by mouth once daily. Dispense: 90 capsule Refill: 3 Follow-up: - RTC 3 mos - Family was asked to call for an earlier visit if needed. SUBJECTIVE Admitted to [facility] 05/28 to 05/31/21 for SI Dx substance induced mood d/o Meds at dc: - atomoxetine 40 mg Oral Daily - guanFACINE 3 mg Oral at Bedtime - melatonin 5 mg Oral at Bedtime - busPIRone 15 mg Oral BID Referred back to therapist and to a CD counselor Mood is overall improved but struggling with being quarantined at home and loss of day structure Pt continues to struggle with substance use- nicotine and THC cartridges Using nicotine patch Working out more Switched buspirone to 7.5/15 due to feeling some side effects with daytime use Sleeping well Good appetite Concentrating well at work Intermittent passive SI without plan or intent No self harm No current passive/active SI/HI No AVH Stressors and/or changes to social history: No Medication reactions: No Treatment compliance is borderline. The patient is seeing a therapist. Any collateral information collected outside this interview? Yes: reviewed [facility] notes in care everywhere Are there any new updates to patient's medical history? Yes, everyone at home is covid pos Review of Systems Respiratory: Positive for cough. All other systems reviewed and are negative. HISTORY Medications Outpatient medications: Current Outpatient Medications on File Prior to Visit Medication Sig - lisdexamfetamine (VYVANSE) 40 mg capsule Take 1 capsule by mouth once daily for 30 days. - lisdexamfetamine (VYVANSE) 40 mg capsule Take 1 capsule by mouth once daily for 30 days. Do not start before June 15, 2021. - guanFACINE (INTUNIV ER) 3 mg Tb24 Take 1 tablet by mouth once daily. - busPIRone (BUSPAR) 15 mg tablet Take 1 tablet by mouth twice daily. - atomoxetine (STRATTERA) 40 mg capsule Take 1 capsule by mouth once daily. No current facility-administered medications on file prior to visit. ALLERGIES No Known Allergies Medical CURRENT PCP: No primary care provider on file. ACTIVE PROBLEM LIST Generalized Anxiety Disorder Adhd Substance Use Disorder Oppositional Defiant Disorder Seasonal Affective Disorder (Hcc) PREVIOUS SURGERIES: History reviewed. No pertinent surgical history. Family History reviewed. No pertinent family history. OBJECTIVE There were no vitals filed for this visit. - Vital signs not obtained as this was a virtual visit Last 3 Encounter Wt Readings: Date: Wt: 12/28/2019 75.3 kg (166 lb) (88 %, Z= 1.19)* 09/21/2019 76.7 kg (169 lb) (91 %, Z= 1.36)* 07/20/2019 77.1 kg (170 lb) (93 %, Z= 1.45)* Last 3 Encounter Ht Readings: Date: Ht: 03/09/2019 177.8 cm (5' 10") (85 %, Z= 1.05)* 02/09/2019 177 cm (5' 9.69") (84 %, Z= 0.99)* There is no height or weight on file to calculate BMI. PHYSICAL EXAM General / Constitutional: 16 year old who is in no acute distress, well appearing, alert, well-hydrated, well nourished. Neurological: Grossly normal strength and no abnormal movements. CN II-XII: grossly intact. No tics or tremors noted. MENTAL STATUS EXAMINATION: Appearance: 16 year old male, casually dress (more content not included)... [facility] 04-11-2021 Note HNO ID: [id number] Author: Zia Ann MD Service: ? Author Type: Physician Type: Progress Notes Filed: 04/11/2021 10:13 AM Note Text: CHILD AND ADOLESCENT PSYCHIATRY FOLLOW-UP VISIT Type of visit: virtual visit Patient was present for this visit. Accompanied by: biologic mother Total time for encounter: 30 minutes Confidentiality limitations with virtual visits were reviewed with the patient and guardian, who have consented and accepted the risk verbally prior to proceeding with this encounter. ASSESSMENT AND PLAN ADHD worsened as school year progressed but has improved with restarting vyvanse- there is still some jitteriness when restarting it but this is more manageable He is smoking marijuana occasionally again but has also started counseling- encouraged sobriety Impulsivity and anxiety seems worse in evenings- will try to move HS Intuniv to dinner time for better sx coverage Will continue buspirone at current dose Problem List Items Addressed This Visit Psychiatry Generalized anxiety disorder Overview Continue buspirone 15mg twice daily ADHD - Primary Overview Continue Intuniv 3mg - try taking at dinner time Continue Strattera 40mg daily Continue Vyvanse 30mg daily Continue in counseling Relevant Medications lisdexamfetamine (VYVANSE) 30 mg capsule lisdexamfetamine (VYVANSE) 30 mg capsule (Start on 05/11/2021) lisdexamfetamine (VYVANSE) 30 mg capsule (Start on 06/10/2021) Substance use disorder Overview Continue counseling. Oppositional defiant disorder Overview Continue in counseling. Diagnoses: (F90.2) Attention deficit hyperactivity disorder (ADHD), combined type (primary encounter diagnosis) (F41.1) Generalized anxiety disorder (F19.90) Substance use disorder (F91.3) Oppositional defiant disorder Orders: Orders Placed This Encounter lisdexamfetamine (VYVANSE) 30 mg capsule Sig: Take 1 capsule by mouth once daily for 30 days. Dispense: 30 capsule Refill: 0 lisdexamfetamine (VYVANSE) 30 mg capsule Sig: Take 1 capsule by mouth once daily for 30 days. Do not start before May 11, 2021. Dispense: 30 capsule Refill: 0 lisdexamfetamine (VYVANSE) 30 mg capsule Sig: Take 1 capsule by mouth once daily for 30 days. Do not start before June 10, 2021. Dispense: 30 capsule Refill: 0 Follow-up: - RTC 3 mos for VV - Family was asked to call for an earlier visit if needed. SUBJECTIVE Cousin recently which was stressful for him Since restarting Vyvanse, he has been more focused and attentive to schoolwork, lasts through the day but when rx wears off at night he has increased impulsive decision making Completed rating scales at mom's office: elevated anxiety score but low depression score Doing fairly well academically Pt has started using marijuana and etoh again He has started meeting with new counselor [facility] Taking rx daily (incl Intuniv at night) Sleeping poorly this week- had some trouble when he started vyvanse that improved with melatonin Appetite decreased with stimulant but still eating regularly No recent self harm Occasional passive SI without plan or intent Stressors and/or changes to social history: No Medication reactions: Yes, decreased appetite Treatment compliance is good. The patient is seeing a therapist. Any collateral information collected outside this interview? No Are there any new updates to patient's medical history? No Review of Systems All other systems reviewed and are negative. HISTORY Medications Outpatient medications: Current Outpatient Medications on File Prior to Visit Medication Sig - lisdexamfetamine (VYVANSE) 30 mg capsule Take 1 capsule by mouth once daily for 30 days. - guanFACINE (INTUNIV ER) 3 mg Tb24 Take 1 tablet by mouth once daily. - busPIRone (BUSPAR) 15 mg tablet Take 1 tablet by mouth twice daily. - atomoxetine (STRATTERA) 40 mg capsule Take 1 capsule by mouth once daily. - hydrOXYzine HCl (ATARAX) 25 mg tablet Take 1 tablet by mouth twice daily as needed for Anxiety. No current facility-administered medications on file prior to visit. ALLERGIES No Known Allergies Medical CURRENT PCP: No primary care provider on file. ACTIVE PROBLEM LIST Generalized Anxiety Disorder Adhd Substance Use Disorder Oppositional Defiant Disorder Seasonal Affective Disorder (Hcc) PREVIOUS SURGERIES: History reviewed. No pertinent surgical history. Family History reviewed. No pertinent family history. OBJECTIVE There were no vitals filed for this visit. - Vital signs not obtained as this was a virtual visit Wt at home: 169 lbs Last 3 Encounter Wt Readings: Date: Wt: 12/28/2019 75.3 kg (166 lb) (88 %, Z= 1.19)* 09/21/2019 76.7 kg (169 lb) (91 %, Z= 1.36)* 07/20/2019 77.1 kg (170 lb) (93 %, Z= 1.45)* Last 3 Encounter Ht Readings: Date: Ht: 03/09/2019 177.8 cm (5' 10") (85 %, Z= 1.05)* 02/09/2019 177 cm (5' 9.69") (84 %, (more content not included)... [facility] 01-09-2021 Note HNO ID: [id number] Author: Zia Ann Service: ? Author Type: Physician Type: Progress Notes Filed: 01/09/2021 2:14 PM Note Text: CHILD AND ADOLESCENT PSYCHIATRY FOLLOW-UP VISIT Type of visit: virtual visit Patient was present for this visit. Accompanied by: biologic mother Total time for encounter: 30 minutes Confidentiality limitations with virtual visits were reviewed with the patient and guardian, who have consented and accepted the risk verbally prior to proceeding with this encounter. ASSESSMENT AND PLAN Pt is overall doing well with manageable sx ADHD is better controlled on 40mg of atomoxetine- there are still some sx but these are manageable so shared decision to continue at 40mg but can increase to 60mg in future if needed Anxiety is fairly well controlled- discussed that we could split buspirone AM 15mg dose into 7.5mg AM AND lunch but agreed to continue at 15mg BID for ease of administration Problem List Items Addressed This Visit Psychiatry Generalized anxiety disorder Overview Continue buspirone 15mg twice daily ADHD - Primary Overview Continue Intuniv 3mg daily Continue Strattera 40mg daily Consider getting restarted in counseling Substance use disorder Overview Restart counseling. Diagnoses: (F90.2) Attention deficit hyperactivity disorder (ADHD), combined type (primary encounter diagnosis) (F41.1) Generalized anxiety disorder (F19.90) Substance use disorder Orders: Orders Placed This Encounter guanFACINE (INTUNIV ER) 3 mg Tb24 Sig: Take 1 tablet by mouth once daily. Dispense: 90 tablet Refill: 3 busPIRone (BUSPAR) 15 mg tablet Sig: Take 1 tablet by mouth twice daily. Dispense: 180 tablet Refill: 3 atomoxetine (STRATTERA) 40 mg capsule Sig: Take 1 capsule by mouth once daily. Dispense: 90 capsule Refill: 3 Follow-up: - RTC 6 mos for VV - Family was asked to call for an earlier visit if needed. SUBJECTIVE School is all virtual and meeting with science tutor He is making good decisions and staying on top of his tasks more easily - he has been working regularly Relationship with parents and sister is improved He has increased atomoxetine dose with benefit- he had some passive SI initially when dose increased but this has since resolved- there is still some misplacing, procrastination/avoidance, distraction but this is manageable He is vaping nicotine intermittently but using less recently- using marijuana edibles rarely Anxiety is overall well controlled, less worry Will have panic attacks when he quits nicotine Sleeping well Good appetite Mood can vary but more good than bad days Taking rx daily (not needing any hydroxyzine recently) No self harm Rare passive SI but no intent/plan No HI/AVH Stressors and/or changes to social history: No Medication reactions: No Treatment compliance is good. The patient is not seeing a therapist. Any collateral information collected outside this interview? No Are there any new updates to patient's medical history? No Review of Systems Respiratory: Positive for cough. All other systems reviewed and are negative. HISTORY Medications Outpatient medications: Current Outpatient Medications on File Prior to Visit Medication Sig - atomoxetine (STRATTERA) 40 mg capsule Take 1 capsule by mouth once daily. - guanFACINE (INTUNIV ER) 3 mg Tb24 Take 1 tablet by mouth once daily - busPIRone (BUSPAR) 15 mg tablet Take 1 tablet by mouth twice daily - hydrOXYzine HCl (ATARAX) 25 mg tablet Take 1 tablet by mouth twice daily as needed for Anxiety. No current facility-administered medications on file prior to visit. ALLERGIES No Known Allergies Medical CURRENT PCP: No primary care provider on file. ACTIVE PROBLEM LIST Generalized Anxiety Disorder Adhd Substance Use Disorder Oppositional Defiant Disorder Seasonal Affective Disorder (Hcc) PREVIOUS SURGERIES: History reviewed. No pertinent surgical history. Family History reviewed. No pertinent family history. OBJECTIVE There were no vitals filed for this visit. - Vital signs not obtained as this was a virtual visit 6'2" 165 # Last 3 Encounter Wt Readings: Date: Wt: 12/28/2019 75.3 kg (166 lb) (88 %, Z= 1.19)* 09/21/2019 76.7 kg (169 lb) (91 %, Z= 1.36)* 07/20/2019 77.1 kg (170 lb) (93 %, Z= 1.45)* Last 3 Encounter Ht Readings: Date: Ht: 03/09/2019 177.8 cm (5' 10") (85 %, Z= 1.05)* 02/09/2019 177 cm (5' 9.69") (84 %, Z= 0.99)* There is no height or weight on file to calculate BMI. PHYSICAL EXAM General / Constitutional: 15 year old who is in no acute distress, well appearing, alert, well-hydrated, well nourished. Neurological: Grossly normal strength and no abnormal movements. CN II-XII: grossly intact. No tics or tremors noted. MENTAL STATUS EXAMINATION: Appearance: 15 year old male, casually dressed and appears stated age. Behavior: The patient behaves appropriately during (more content not included)... [facility] Instructions Name Patient Instructions Indication:BMI 24.0-24.9, adult Start: 3 Instruction Type:Provider Instructions for Treatment How to Access Health Information Online using Patient Portal and 3rd [employer] Apps Indication:BMI 24.0-24.9, adult Start: 3 Instruction Type:Patient Education [facility]; [facility] Work Phone: [email or web address]* Name Dates Details Patient Instructions Indication:BMI 24.0-24.9, adult Start:21-Jan-2023 Instruction Type:Provider Instructions for Treatment How to Access Health Informa tion Online using Patient Portal and [facility] [employer] Apps Indication:BMI 24.0-24.9, adult Start:21-Jan-2023 Instruction Type:Patient Education [facility]; [facility] Work Phone: instructions* Name Dates Details Patient Instructions Indication:BMI 24.0-24.9, adult Start:21-Jan-2023 Instruction Type:Provider Instructions for Treatment How to Access Health Informa tion Online using Patient Portal and [employer]rd [employer] Apps Indication:BMI 24.0-24.9, adult Start:21-Jan-2023 Instruction Type:Patient Education [facility]; [facility] Work Phone: instructions* Name Dates Details Patient Instructions Indication:BMI 24.0-24.9, adult Start:21-Jan-2023 Instruction Type:Provider Instructions for Treatment How to Access Health Informa tion Online using Patient Portal and [employer]rd [employer] Apps Indication:BMI 24.0-24.9, adult Start:21-Jan-2023 Instruction Type:Patient Education [facility]; [facility] Work Phone: instructions* Name Dates Details Patient Instructions Indication:BMI 24.0-24.9, adult Start:21-Jan-2023 Instruction Type:Provider Instructions for Treatment How to Access Health Informa tion Online using Patient Portal and [employer]rd [employer] Apps Indication:BMI 24.0-24.9, adult Start:21-Jan-2023 Instruction Type:Patient Education [facility]; [facility] Work Phone: instructions* Name Dates Details Patient Instructions Indication:BMI 24.0-24.9, adult Start:21-Jan-2023 Instruction Type:Provider Instructions for Treatment How to Access Health Informa tion Online using Patient Portal and [employer]rd [employer] Apps Indication:BMI 24.0-24.9, adult Start:21-Jan-2023 Instruction Type:Patient Education [facility]; [facility] Work Phone: instructions* Name Dates Details Patient Instructions Indication:BMI 24.0-24.9, adult Start:21-Jan-2023 Instruction Type:Provider Instructions for Treatment How to Access Health Informa tion Online using Patient Portal and [employer] Apps Indication:BMI 24.0-24.9, adult Start:21-Jan-2023 Instruction Type:Patient Education [facility]; [facility] Work Phone: instructions* Name Dates Details Patient Instructions Indication:BMI 24.0-24.9, adult Start:21-Jan-2023 Instruction Type:Provider Instructions for Treatment How to Access Health Informa tion Online using Patient Portal and [employer]rd [employer] Apps Indication:BMI 24.0-24.9, adult Start:21-Jan-2023 Instruction Type:Patient Education [facility]; [facility] Work Phone: Instructions* Name Dates Details Patient Instructions Indication:BMI 24.0-24.9, adult Start:21-Jan-2023 Instruction Type:Provider Instructions for Treatment How to Access Health Informa tion Online using Patient Portal and [employer] Apps Indication:BMI 24.0-24.9, adult Start:21-Jan-2023 Instruction Type:Patient Education [facility]; [facility] Work Phone: Instructions* Name Dates Details Patient Instructions Indication:BMI 24.0-24.9, adult Start:21-Jan-2023 Instruction Type:Provider Instructions for Treatment How to Access Health Informa tion Online using Patient Portal and [employer] Apps Indication:BMI 24.0-24.9, adult Start:21-Jan-2023 Instruction Type:Patient Education [facility]; [facility] Work Phone: Instructions* Name Dates Details Patient Instructions Indication:BMI 24.0-24.9, adult Start:21-Jan-2023 Instruction Type:Provider Instructions for Treatment How to Access Health Informa tion Online using Patient Portal and [employer] Apps Indication:BMI 24.0-24.9, adult Start:21-Jan-2023 Instruction Type:Patient Education [facility]; [facility] Work Phone: Summary Purpose Family History No Family History Records FoundNo Family History Records FoundNo Family History Records FoundNo Family History Records FoundNo Family History Records FoundNo Family History Records Found Advance Directives No Advanced Directives Records FoundNo Advanced Directives Records FoundNo Advanced Directives Records FoundNo Advanced Directives Records FoundNo Advanced Directives Records FoundNo Advanced Directives Records Found Additional Source Comments (unrecognized sect ion and content) No Status Records FoundNo Status Records FoundNo Status Records FoundNo Status Records FoundNo Status Records FoundNo Status Records Found INFORMATION SOURCE (unrecogn ized section and content) DATE CREATED AUTHOR 12/30/2021 [facility] DATE CREATED AUTHOR AUTHOR'S ORGANIZ ATION 01/06/2022 [facility] DATE CREATED AUTHOR AUTHOR'S ORGANIZ ATION 03/26/2022 [facility] [employer] DATE CREATED AUTHOR AUTHOR'S ORGANIZ ATION 03/28/2022 [facility] DATE CREATED AUTHOR AUTHOR'S ORGANIZ ATION 02/12/2023 [facility] DATE CREATED AUTHOR AUTHOR'S ORGANIZ ATION 02/04/2025 [facility] FOR RECORDS PERTAINING TO PATIENTS WHO ARE OR HAVE BEEN ENROLLED IN A CHEMICAL DEPENDENCY/SUBSTANCEABUSE PROGRAM, SOME INFORMATION MAY BE OMITTED. This clinical summary was aggregated from multiple sources. Caution should be exercised in using it in the provision of clinical care. This summary normalizes information from multiple sources, and as a consequence, information in this document may materially change the coding, format and clinical context of patient data. In addition, data may be omitted in some cases. CLINICAL DECISIONS SHOULD BE BASED ON THE PRIMARY CLINICAL RECORDS. [employer] provides no warranty or guarantee of the accuracy or completeness of information in this document.
[2025-08-23 19:02] LABS: Iron Binding Capacity,Total 301 ug/dL (250-450)
[2025-08-23 19:07] LABS: CRP < 3.00 mg/L (0.0-3.0); Iron 99 ug/dL (65-175); Iron Binding Capacity,Unsat 202 ug/dL (228-428)
== END | disposition home or self-care (01) ==
LOC: MTLAB 15:49
PROVIDERS: PCP Internal Medicine; Referring Provider Nurse Practitioner Family; Visit Provider Nurse Practitioner Family
DX: K92.1 Melena (principal)
CPT/HCPCS: 36415; 80053; 82728; 83540; 83550; 85025; 85652; 86140